=== PATIENT | female | born 1945 | race African-American/Black ===

== ENCOUNTER 2017-01-12 17:56 | Emergency (ER) | payer MEDICARE ==
--- NOTE | 2017-01-12 18:13 | ER Document Report ---
ED Medical Screen (RME) - General Stated Complaint: BLOOD SUGAR PROBLEM Time seen by provider: 18:10 Mode of Arrival: Ambulatory Information source: Patient Notes: 71 yo diabetic female c/o bilateral feet swelling, shortness of breatih, black 4th toe after nail was cut and bleeding 1 month ago.. PCP. [address]. contreras. TRAVEL OUTSIDE OF THE [place] IN LAST 30 DAYS: No - Related Data Allergies/Adverse Reactions: peppermint [Peppermint] Allergy (Verified 02/17/16 02:52) Past Medical History - Past Medical History Cardiac Medical History: Reports: Hx Hypercholesterolemia, Hx Hypertension Pulmonary Medical History: Reports: Hx Asthma, Hx Pneumonia Endocrine Medical History: Reports: Hx Diabetes Mellitus Type 2 Malignancy Medical History: Reports: Hx Lung Cancer - right lung GI Medical History: Reports: Hx Gastroesophageal Reflux Disease Musculoskeltal Medical History: Reports Hx Arthritis, Reports Hx Musculoskeletal Trauma Psychiatric Medical History: Reports: Hx Anxiety Traumatic Medical History: Reports: Hx Fractures - Immunizations Immunizations up to date: Yes Hx Diphtheria, Pertussis, Tetanus Vaccination: Yes
[2017-01-12] MEDS ORDERED: ASPIRIN 81 MG TABLET, CHEWABLE PO ONE (18:14)
--- NOTE | 2017-01-12 18:45 | ER Document Report ---
ED Extremity Problem, Lower - General Mode of Arrival: Ambulatory Information source: Patient TRAVEL OUTSIDE OF THE [place] IN LAST 30 DAYS: No - HPI Patient complains to provider of: Swelling - bilateral lower extremities, Other - black right 4th toe nail Location: Leg, 4th Toe - right Occurred: Other - November 2016 Associated symptoms: Other - see above <KEI GREGG - Last Filed: 01/12/17 18:49> <KAYODE HORTON - Last Filed: 01/12/17 21:25> - General Chief Complaint: Swelling of Lower Extremity Stated Complaint: BLOOD SUGAR PROBLEM Notes: 71 year old female presents to the ED complaining of bilateral lower extremity swelling and a black 4th right toe nail that occurred in November 2016. Patient states that the swelling is worse than normal, but she has not talked to her primary care provider, Dr. Chavarria, about the swelling. Patient states that she thought that the swelling started secondary to the nail discoloration. Patient claims that while her nails were being cut, there was some bleeding present to the right 4th toenail. Patient last saw Dr. Chavarria in November 2016 before she noticed the swelling. (KEI GREGG) - Related Data Allergies/Adverse Reactions: peppermint [Peppermint] Allergy (Verified 02/17/16 02:52) Past Medical History - General Information source: Patient - Social History Smoking Status: Current Some Day Smoker Family History: DM, Hyperlipidemia, Hypertension - Past Medical History Cardiac Medical History: Reports: Hx Hypercholesterolemia, Hx Hypertension Pulmonary Medical History: Reports: Hx Asthma, Hx COPD, Hx Pneumonia Endocrine Medical History: Reports: Hx Diabetes Mellitus Type 2 Renal/ Medical History: Denies: Hx Peritoneal Dialysis Malignancy Medical History: Reports: Hx Lung Cancer - right lung GI Medical History: Reports: Hx Gastroesophageal Reflux Disease Musculoskeltal Medical History: Reports Hx Arthritis, Reports Hx Musculoskeletal Trauma Psychiatric Medical History: Reports: Hx Anxiety Traumatic Medical History: Reports: Hx Fractures Surgical Hx: Negative - Immunizations Immunizations up to date: Yes Hx Diphtheria, Pertussis, Tetanus Vaccination: Yes Hx Pneumococcal Vaccination: 09/01/12 <KEI GREGG - Last Filed: 01/12/17 18:49> Review of Systems - Review of Systems Constitutional: No symptoms reported EENT: No symptoms reported Cardiovascular: No symptoms reported Respiratory: No symptoms reported Gastrointestinal: No symptoms reported Genitourinary: No symptoms reported Female Genitourinary: No symptoms reported Musculoskeletal: See HPI, Leg swelling - bilateral, Other - right 4th toenail discoloration Skin: No symptoms reported Hematologic/Lymphatic: No symptoms reported Neurological/Psychological: No symptoms reported -: Yes All other systems reviewed and negative <GREGGKEI - Last Filed: 01/12/17 18:49> Physical Exam - General General appearance: Alert In distress: None - HEENT Head: Normocephalic, Atraumatic Eyes: Normal Extraocular movements intact: Yes Pupils: PERRL - Respiratory Respiratory status: No respiratory distress Breath sounds: Normal - Cardiovascular Rhythm: Regular Heart sounds: Normal auscultation - Abdominal Inspection: Obese. No: Normal Distension: No distension Bowel sounds: Normal Tenderness: Nontender - Back Back: Normal - Extremities General upper extremity: Normal inspection, Normal ROM General lower extremity: Edema - bilateral pitting edema that is not new., Normal ROM, Other - right 4th toe nail is stained black consistent with the patient's story of some bleeding present at the time of getting her nails cut. - Neurological Neuro grossly intact: Yes - baseline dimentia - Psychological Associated symptoms: Normal affect, Normal mood - Skin Skin Temperature: Warm Skin Moisture: Dry Skin Color: Normal <KEI GREGG - Last Filed: 01/12/17 18:49> Course <GREGGKEI - Last Filed: 01/12/17 18:49> - Laboratory Result Diagrams: 01/12/17 19:15 01/12/17 19:15 - Diagnostic Test Radiology reviewed: Image reviewed, Reports reviewed - Chest x-ray is unremarkable - EKG Interpretation by Me EKG shows normal: Sinus rhythm, [place], Intervals, ST-T Waves. abnormal: QRS Complexes Rate: Normal - 75 Rhythm: NSR Voltage: Consistant with LVH When compared to previous EKG there are: No significant change <KAYODE HORTON - Last Filed: 01/12/17 21:25> - Re-evaluation Re-evalutation: 01/12/17 20:18 The patient's blood sugar was 503. On previous visits that has been in the 400s. An A1c was done as none were seen in the past on review of the records, and her A1c is 11.4 She is obviously very poorly controlled with respect to her diabetes. She will be encouraged to follow-up with her primary care provider on Saturday to review this lab work, her current medications and compliance, and her edema. ( KAYODE HORTON) - Vital Signs Vital signs: Temp Pulse Resp BP Pulse Ox 98.1 F 76 22 H 155/67 H 100 01/12/17 18:07 01/12/17 18:07 01/12/17 19:00 01/12/17 18:07 01/12/17 19:00 (KEI GREGG) (KAYODE HORTON) - Laboratory Laboratory results interpreted by me: 01/12/17 01/12/17 01/12/17 19:15 19:15 19:15 RBC 3.58 L Hgb 11.9 L MCV 101 H Seg Neuts % (Manual) 29 L Lymphocytes % (Manual) 68 H Monocytes % (Manual) 2 L Abs Lymphs (Manual) 6.5 H Sodium 136.4 L Est GFR (Non-Af Amer) 54 L Glucose 503 H* Hemoglobin A1c % 11.4 H Urine Glucose (UA) Ur Leukocyte Esterase 01/12/17 20:45 RBC Hgb MCV Seg Neuts % (Manual) Lymphocytes % (Manual) Monocytes % (Manual) Abs Lymphs (Manual) Sodium Est GFR (Non-Af Amer) Glucose Hemoglobin A1c % Urine Glucose (UA) >=500 H Ur Leukocyte Esterase MODERATE H Discharge <KEI GREGG - Last Filed: 01/12/17 18:49> <KAYODE HORTON - Last Filed: 01/12/17 21:25> - Discharge Clinical Impression: Peripheral edema, Poorly controlled diabetes mellitus Urinary tract infection Qualifiers: Urinary tract infection type: site unspecified Hematuria presence: without hematuria Qualified Code(s): N39.0 - Urinary tract infection, site not specified Condition: Stable Disposition: HOME, SELF-CARE Additional Instructions: Urinary Tract Infection: Your evaluation indicates that you have a urinary tract infection. This is due to germs growing in the bladder. This is a common problem. This infection usually responds quickly to antibiotics. Your antibiotic should be taken exactly as prescribed. Drink plenty of fluids -- three to four quarts a day. Occasionally, a bladder anesthetic will be prescribed to help stop the feeling of urgency until the antibiotic has a chance to clear the infection. This may cause your urine to be dark orange. Certain urine infections require a culture. If the doctor obtained a culture, the results will be back in two days. You should call to see if a change in treatment is needed. A repeat urinalysis after you finish treatment is often recommended. The physician will let you know if further testing is required. Call the doctor if you develop fever, chills, flank pain, inability to urinate, or blood in the urine. Edema, Peripheral: You have swelling in your legs. This is called peripheral edema. It can be caused by "leaky capillaries," inflammation, disease of the leg veins, or excess salt and water in your body. Edema may be a sign of heart, kidney, or liver disease. A medical evaluation can determine if there is a serious underlying cause for your edema. Avoid prolonged standing. If you must sit for a long time, occasionally get up and walk around or elevate your legs. Support stockings can be helpful in limiting swelling. Often diuretic or water pills are used to remove excess salt and water from your body. Call the doctor or return if you develop increased swelling, pain, or redness, shortness of breath, chest pain, or any other significant change. Diabetes: You have an abnormally high blood sugar. Uncontrolled high blood sugar leads to early heart disease, strokes, nerve damage, eye damage, and kidney damage. All diabetics should follow a diet designed to control the blood sugar. Overweight diabetics should exercise regularly and lose weight. If this is not sufficient to control the blood sugar, pills or insulin shots are necessary. Home testing of blood sugars or urine sugar is required. YOUR BLOOD SUGAR HAS BEEN POORLY CONTROLLED FOR A LONG TIME. TAKE THE MEDICATION PRESCRIBED FOR URINE INFECTION. DRINK PLENTY OF WATER. FOLLOW UP WITH DR. CHAVARRIA SATURDAY TO RECHECK YOUR URINE AND TO REVIEW YOUR DIABETES MEDICATION. RETURN TO THE EMERGENCY ROOM IF ANY NEW OR WORSENING SYMPTOMS. Prescriptions: Cephalexin Monohydrate [Keflex 500 mg Capsule] 500 mg PO BID #10 capsule Referrals: ADOLFO CHAVARRIA MD [Primary Care Provider] - 01/14/17 Scribe Attestation: 01/12/17 21:25 I personally performed the services described in the documentation, reviewed and edited the documentation which was dictated to the scribe in my presence, and it accurately records my words and actions. (KAYODE HORTON) Scribe Documentation - Scribe Written by Sheilaibe:: Lisandra Beltrán, 01/12/2017 1845 acting as scribe for :: Isidra <KEI GREGG - Last Filed: 01/12/17 18:49>
--- NOTE | 2017-01-12 19:29 | EKG REPORT ---
SEVERITY:- ABNORMAL ECG - SINUS RHYTHM LVH WITH SECONDARY REPOLARIZATION ABNORMALITY : Confirmed by: Philip Burrell MD 12-Jan-2017 19:27:48
[2017-01-12 19:37] LABS: ALANINE AMINOTRANSFERASE 29 U/L (9-52); ALBUMIN 3.6 g/dL (3.5-5.0); ALKALINE PHOSPHATASE 91 U/L (38-126); ANION GAP 11 (5-19); ASPARTATE AMINO TRANSFERASE 19 U/L (14-36); BILIRUBIN,TOTAL 0.3 mg/dL (0.2-1.3); BLOOD UREA NITROGEN 17 mg/dL (7-20); CALCIUM 9.9 mg/dL (8.4-10.2); CARBON DIOXIDE 24 mmol/L (22-30); CHLORIDE 101 mmol/L (98-107); CREATINE KINASE 67 U/L (30-135); CREATININE RESULT 1.01 mg/dL (0.52-1.25); SODIUM 136.4 mmol/L (137-145); TOTAL PROTEIN 7.4 g/dL (6.3-8.2)
[2017-01-12 19:42] LABS: HEMOGLOBIN 11.9 g/dL (12.0-15.5); HGB HCT DIFFERENCE -0.3; MEAN CORPUSCULAR HEMOGLOBIN 33.1 pg (27.0-33.4); MEAN CORPUSCULAR VOLUME 101 fl (80-97); RED BLOOD COUNT 3.58 10^6/uL (3.72-5.28); RED CELL DISTRIBUTION WIDTH 13.2 % (11.5-14.0); WHITE BLOOD COUNT 9.5 10^3/uL (4.0-10.5)
[2017-01-12 19:47] LABS: GLUCOSE 503 mg/dL (75-110)
[2017-01-12 19:49] LABS: CREATINE KINASE MB 0.69 ng/mL (<4.55)
[2017-01-12 19:50] LABS: TROPONIN I < 0.012 ng/mL
[2017-01-12 20:09] LABS: EOSINOPHILS % (MANUAL) 1 % (0-6); LYMPHOCYTES % (MANUAL) 68 % (13-45); TOTAL CELLS COUNTED 100
[2017-01-12 20:11] LABS: TOXIC GRANULATION 1+
[2017-01-12 20:12] LABS: PLATELET CLUMPS PRESENT
[2017-01-12] MEDS ORDERED: INSULIN REG, HUMAN 100 UNIT/ML 3 ML VIAL (PYX) SUBCUT ONE (20:20)
[2017-01-12 21:15] LABS: APPEARANCE,URINE CLEAR; BILIRUBIN,URINE NEGATIVE (NEGATIVE); GLUCOSE, URINE >=500 mg/dL (NEGATIVE); KETONES,URINE NEGATIVE (NEGATIVE); LEUKOCYTE ESTERASE,URINE MODERATE (NEGATIVE); NITRITE,URINE NEGATIVE (NEGATIVE); PROTEIN,URINE NEGATIVE (NEGATIVE); URINE SPECIFIC GRAVITY 1.028; UROBILINOGEN,URINE NEGATIVE mg/dL (<2.0)
[2017-01-12] MEDS ORDERED: CEPHALEXIN 500 MG CAPSULE PO ONE (21:19)
[2017-01-12 21:55] VITALS: BP 151/73
== END 2017-01-12 21:54 | disposition home or self-care (01) ==
LOC: ER 17:56
DX: R60.0 Localized edema (principal); E11.9 Type 2 diabetes mellitus without complications; M79.89 Other specified soft tissue disorders; F17.210 Nicotine dependence, cigarettes, uncomplicated; E78.00 Pure hypercholesterolemia, unspecified; I10 Essential (primary) hypertension
CPT/HCPCS: 93005; 99284; 36415; 87086; 82553; 82550; 85025; 80053; 81001; 84484; 83036; 83880; 71010; 93010; A9270 ×3; J1815

== ENCOUNTER 2017-05-11 11:25 | Emergency (ER) | payer MEDICARE ==
[2017-05-11] MEDS ORDERED: NORMAL SALINE 1000 ML 1,000 ML IV ONE (11:46)
[2017-05-11 12:39] LABS: ABSOLUTE BASOPHILS # (AUTO) 0.1 10^3/uL (0.0-0.2); ABSOLUTE EOSINOPHILS # (AUTO) 0.1 10^3/uL (0.0-0.6); ABSOLUTE LYMPHOCYTES (AUTO) 4.1 10^3/uL (0.5-4.7); ABSOLUTE MONOCYTES (AUTO) 0.5 10^3/uL (0.1-1.4); ABSOLUTE NEUT (AUTO) 4.7 10^3/uL (1.7-8.2); BASOPHILS % (AUTO) 1.1 % (0-2); EOSINOPHILS % (AUTO) 0.6 % (0-6); HEMATOCRIT 38.3 % (36.0-47.0); HEMOGLOBIN 12.7 g/dL (12.0-15.5); HGB HCT DIFFERENCE -0.2; LYMPHOCYTES % (AUTO) 43.2 % (13-45); MEAN CORPUSCULAR HEMOGLOBIN 33.2 pg (27.0-33.4); MEAN CORPUSCULAR VOLUME 100 fl (80-97); MONOCYTES % (AUTO) 5.6 % (3-13); RED BLOOD COUNT 3.82 10^6/uL (3.72-5.28); RED CELL DISTRIBUTION WIDTH 13.4 % (11.5-14.0); SEGMENTED NEUTROPHILS % (AUTO) 49.5 % (42-78); WHITE BLOOD COUNT 9.4 10^3/uL (4.0-10.5)
[2017-05-11 12:56] LABS: ALANINE AMINOTRANSFERASE 20 U/L (9-52); ALBUMIN 4.1 g/dL (3.5-5.0); ALKALINE PHOSPHATASE 90 U/L (38-126); ANION GAP 10 (5-19); ASPARTATE AMINO TRANSFERASE 21 U/L (14-36); BILIRUBIN,DIRECT 0.4 mg/dL (0.0-0.4); BILIRUBIN,TOTAL 0.7 mg/dL (0.2-1.3); BLOOD UREA NITROGEN 16 mg/dL (7-20); CALCIUM 10.1 mg/dL (8.4-10.2); CARBON DIOXIDE 25 mmol/L (22-30); CHLORIDE 103 mmol/L (98-107); CREATININE RESULT 0.82 mg/dL (0.52-1.25); GLUCOSE 308 mg/dL (75-110); LIPASE 50.7 U/L (23-300); POTASSIUM 4.3 mmol/L (3.6-5.0); SODIUM 138.4 mmol/L (137-145)
[2017-05-11 14:03] LABS: APPEARANCE,URINE SLIGHTLY-CLOUDY; BILIRUBIN,URINE NEGATIVE (NEGATIVE); GLUCOSE, URINE >=500 mg/dL (NEGATIVE); KETONES,URINE 20 mg/dL (NEGATIVE); LEUKOCYTE ESTERASE,URINE LARGE (NEGATIVE); NITRITE,URINE NEGATIVE (NEGATIVE); PROTEIN,URINE NEGATIVE (NEGATIVE); URINE SPECIFIC GRAVITY 1.028; UROBILINOGEN,URINE NEGATIVE mg/dL (<2.0)
[2017-05-11] MEDS ORDERED: CEFTRIAXONE 1 GM/D5W RTU 50 ML IV ONE (14:10)
--- NOTE | 2017-05-11 14:17 | ER Document Report ---
ED General - General Chief Complaint: High Blood Sugar Stated Complaint: BLOOD SUGAR PROBLEM Time Seen by Provider: 05/11/17 11:46 TRAVEL OUTSIDE OF THE [place] IN LAST 30 DAYS: No - HPI Patient complains to provider of: Hyperglycemia Notes: Patient coming in for evaluation of hyperglycemia. Patient is type II diabetic on metformin and glipizide states she has not taken her medication over a month. Patient states her blood sugars 105 100 therefore came to the ER for further evaluation. Patient denies any fever chills nausea vomiting abdominal pain chest pain. Patient states she does have mild dysuria and was recently diagnosed with UTI does not know what antibiotic she was on however this was over a month ago. - Related Data Allergies/Adverse Reactions: peppermint [Peppermint] Allergy (Verified 02/17/16 02:52) Past Medical History - Social History Smoking Status: Current Every Day Smoker Frequency of alcohol use: None Drug Abuse: None Family History: DM, Hyperlipidemia, Hypertension - Past Medical History Cardiac Medical History: Reports: Hx Hypercholesterolemia, Hx Hypertension Pulmonary Medical History: Reports: Hx Asthma, Hx COPD, Hx Pneumonia Endocrine Medical History: Reports: Hx Diabetes Mellitus Type 2 Renal/ Medical History: Denies: Hx Peritoneal Dialysis Malignancy Medical History: Reports: Hx Lung Cancer - right lung GI Medical History: Reports: Hx Gastroesophageal Reflux Disease Musculoskeltal Medical History: Reports Hx Arthritis, Reports Hx Musculoskeletal Trauma Psychiatric Medical History: Reports: Hx Anxiety Traumatic Medical History: Reports: Hx Fractures - Immunizations Immunizations up to date: Yes Hx Diphtheria, Pertussis, Tetanus Vaccination: Yes Hx Pneumococcal Vaccination: 09/01/12 Review of Systems - Review of Systems Constitutional: Other - Hyperglycemia EENT: No symptoms reported Cardiovascular: No symptoms reported Respiratory: No symptoms reported Gastrointestinal: No symptoms reported Genitourinary: No symptoms reported Female Genitourinary: No symptoms reported Musculoskeletal: No symptoms reported Skin: No symptoms reported Hematologic/Lymphatic: No symptoms reported Neurological/Psychological: No symptoms reported Physical Exam - Vital signs Vitals: Temp 98.4 F 05/11/17 11:46 Interpretation: Normal - General General appearance: Appears well, Alert - HEENT Head: Normocephalic, Atraumatic Eyes: Normal Pupils: PERRL - Respiratory Respiratory status: No respiratory distress Chest status: Nontender Breath sounds: Normal Chest palpation: Normal - Cardiovascular Rhythm: Regular Heart sounds: Normal auscultation Murmur: No - Abdominal Inspection: Normal Distension: No distension Bowel sounds: Normal Tenderness: Nontender Organomegaly: No organomegaly - Back Back: Normal, Nontender - Extremities General upper extremity: Normal inspection, Nontender, Normal color, Normal ROM , Normal temperature General lower extremity: Normal inspection, Nontender, Normal color, Normal ROM , Normal temperature, Normal weight bearing. No: Lana's sign - Neurological Neuro grossly intact: Yes Cognition: Normal Orientation: AAOx4 Herrera Coma Scale Eye Opening: Spontaneous [place] Coma Scale Verbal: Oriented [place] Coma Scale Motor: Obeys Commands [place] Coma Scale Total: 15 Speech: Normal Motor strength normal: LUE, RUE, LLE, RLE Sensory: Normal - Psychological Associated symptoms: Normal affect, Normal mood - Skin Skin Temperature: Warm Skin Moisture: Dry Skin Color: Normal Course - Re-evaluation Re-evalutation: 05/11/17 15:03 Patient's laboratory studies does show signs of urinary tract infection this will be sent for culture patient will be given a dose of Rocephin and sent home on Keflex. Patient was given a refill of her diabetic medication and strongly encouraged to follow-up with her PCP Dr. Chavarria for further evaluation of her medications. Patient had no signs of DKA or HH S - Vital Signs Vital signs: Temp Pulse Resp BP Pulse Ox 98.4 F 89 23 H 164/77 H 95 05/11/17 11:46 05/11/17 11:50 05/11/17 13:02 05/11/17 13:02 05/11/17 13:02 - Laboratory Result Diagrams: 05/11/17 12:25 05/11/17 12:25 Laboratory results interpreted by me: 05/11/17 05/11/17 05/11/17 11:56 12:25 12:25 MCV 100 H Glucose 308 H POC Glucose 313 H Urine Glucose (UA) Urine Ketones Urine Blood Ur Leukocyte Esterase 05/11/17 13:20 MCV Glucose POC Glucose Urine Glucose (UA) >=500 H Urine Ketones 20 H Urine Blood SMALL H Ur Leukocyte Esterase LARGE H Discharge - Discharge Clinical Impression: Hyperglycemia Diabetes type 2, uncontrolled Qualifiers: Diabetes mellitus complication status: with unspecified complications 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 We will refill your diabetic medications today. It is very important that she follow-up with your provider for possible adjustment of these medications and that at this time your diabetes is not very well controlled. Your urinalysis does show signs of infection. We will give you a prescription for antibiotics called Keflex. Please take all the antibiotics as prescribed. Return will be sent for culture to let us know which antibiotic he should be on. If we need to change her antibiotics we will call you in the next 48-72 hours. Prescriptions: Cephalexin Monohydrate [Keflex 500 mg Capsule] 500 mg PO QID 10 Days Glipizide [Glucotrol 10 mg Tablet] 10 mg PO BID #60 tablet Metformin HCl [Glucophage] 1,000 mg PO BIDACBS #60 tablet Referrals: ADOLFO CHAVARRIA MD [ACTIVE STAFF] - Follow up as needed
[2017-05-11 15:07] VITALS: BP 184/90
== END 2017-05-11 15:23 | disposition home or self-care (01) ==
LOC: ER 11:25
DX: E11.65 Type 2 diabetes mellitus with hyperglycemia (principal); T38.3X6A Underdosing of insulin and oral hypoglycemic [antidiabetic] drugs, initial encounter; Z91.14 Patient's other noncompliance with medication regimen; N39.0 Urinary tract infection, site not specified; R30.0 Dysuria; I10 Essential (primary) hypertension; J44.9 Chronic obstructive pulmonary disease, unspecified; F17.200 Nicotine dependence, unspecified, uncomplicated; Z91.018 Allergy to other foods; Z85.118 Personal history of other malignant neoplasm of bronchus and lung
CPT/HCPCS: 99285; 96361; 96365; 36415; 87086; 82962; 83690; 85025; 80053; 81001; J7030; J0696

== ENCOUNTER 2017-06-03 01:31 | Emergency (ER) | payer MEDICARE ==
--- NOTE | 2017-06-03 03:24 | ER Document Report ---
ED Fall - General Chief Complaint: Fall Stated Complaint: WELL CHECK Time Seen by Provider: 06/03/17 03:09 Notes: Patient is a 72-year-old female who comes emergency department for chief complaint of fall. She lives at home, she fell at home, she states she tripped and landed on her buttocks. She reports some pain in her buttocks and also in her right hip. Neighbors responded to patient's phone call and are with her at bedside. Patient came by EMS, told them she had no complaints other than difficulty getting up after fall. Patient is not on a blood thinner. Past medical history of diabetes and hypertension. She denies dizziness, vomiting, chest pain, focal numbness or weakness, fever. TRAVEL OUTSIDE OF THE [place] IN LAST 30 DAYS: No - Related data Allergies/Adverse Reactions: peppermint [Peppermint] Allergy (Verified 02/17/16 02:52) Past Medical History - General Information source: Patient - Social History Smoking Status: Never Smoker Frequency of alcohol use: None Drug Abuse: None Lives with: Family Family History: DM, Hyperlipidemia, Hypertension Patient has suicidal ideation: No Patient has homicidal ideation: No - Past Medical History Cardiac Medical History: Reports: Hx Hypercholesterolemia, Hx Hypertension Pulmonary Medical History: Reports: Hx Asthma, Hx COPD, Hx Pneumonia Endocrine Medical History: Reports: Hx Diabetes Mellitus Type 2 Renal/ Medical History: Denies: Hx Peritoneal Dialysis Malignancy Medical History: Reports: Hx Lung Cancer - right lung GI Medical History: Reports: Hx Gastroesophageal Reflux Disease Musculoskeltal Medical History: Reports Hx Arthritis, Reports Hx Musculoskeletal Trauma Psychiatric Medical History: Reports: Hx Anxiety Traumatic Medical History: Reports: Hx Fractures - Immunizations Immunizations up to date: Yes Hx Diphtheria, Pertussis, Tetanus Vaccination: Yes Hx Pneumococcal Vaccination: 09/01/12 Review of Systems - Review of Systems Constitutional: No symptoms reported EENT: No symptoms reported Cardiovascular: No symptoms reported Respiratory: No symptoms reported Gastrointestinal: No symptoms reported Genitourinary: No symptoms reported Female Genitourinary: No symptoms reported Musculoskeletal: See HPI Skin: No symptoms reported Hematologic/Lymphatic: No symptoms reported Neurological/Psychological: No symptoms reported Physical Exam - Vital signs Vitals: Temp Pulse Resp BP Pulse Ox 98.8 F 85 18 154/69 H 95 06/03/17 01:41 06/03/17 01:41 06/03/17 01:41 06/03/17 01:41 06/03/17 01:41 Interpretation: Normal - General General appearance: Appears well, Alert In distress: None - Patient is talkative, smiling, well-appearing, does not appear to be in any pain - HEENT Head: Normocephalic, Atraumatic Eyes: Normal Conjunctiva: Normal Extraocular movements intact: Yes Eyelashes: Normal Pupils: PERRL Ears: Normal External canal: Normal Tympanic membrane: Normal Sinus: Normal Nasal: Normal Mouth/Lips: Normal Mucous membranes: Normal Pharynx: Normal Neck: Normal - Respiratory Respiratory status: No respiratory distress Chest status: Nontender Breath sounds: Normal. No: Decreased air movement, Wheezing Chest palpation: Normal - Cardiovascular Rhythm: Regular. No: Tachycardia Heart sounds: Normal auscultation, S1 appreciated, S2 appreciated Murmur: No - Abdominal Inspection: Normal Distension: No distension Bowel sounds: Normal Tenderness: Nontender. No: Tender, Guarding Organomegaly: No organomegaly - Back Back: Normal, Nontender. No: Tender - Appreciate any tenderness in the midline , there is mild tenderness over the bilateral paraspinal muscles, extremities without difficulty, normal distal neurovascular exam, normal strength, no saddle anesthesia - Extremities General upper extremity: Normal inspection, Nontender, Normal color, Normal ROM , Normal temperature General lower extremity: Other - States that she has pain when her right proximal femur and hip are palpated, however she does not appear to be in pain, has good motion, able to ambulate using her cane - Neurological Neuro grossly intact: Yes Cognition: Normal Orientation: AAOx4 [place] Coma Scale Eye Opening: Spontaneous [place] Coma Scale Verbal: Oriented [place] Coma Scale Motor: Obeys Commands [place] Coma Scale Total: 15 Speech: Normal Motor strength normal: LUE, RUE, LLE, RLE Sensory: Normal - Psychological Associated symptoms: Normal affect, Normal mood - Skin Skin Temperature: Warm Skin Moisture: Dry Skin Color: Normal Course - Re-evaluation Re-evalutation: Alert, well-appearing, does not have any signs of concerning injuries, has negative x-rays, has no concerning deficits. Discussed with patient, I discussed results, I asked if she feels safe at home living alone where she wants home health for additional assistance, she states that she eats well, gets around well, and does very well, at this time she does not want any additional assistance, she states she just wanted to be checked out. - Vital Signs Vital signs: Temp Pulse Resp BP Pulse Ox 98.8 F 85 18 154/69 H 95 06/03/17 01:41 06/03/17 01:41 06/03/17 01:41 06/03/17 01:41 06/03/17 01:41 - Diagnostic Test Radiology reviewed: Image reviewed, Reports reviewed Discharge - Discharge Clinical Impression: Fall Qualifiers: Encounter type: initial encounter Qualified Code(s): W19.XXXA - Unspecified fall, initial encounter Hip pain Qualifiers: Laterality: right Qualified Code(s): M25.551 - Pain in right hip Condition: Stable Disposition: HOME, SELF-CARE Additional Instructions: The images do not show any new or concerning findings. Take tylenol for pain. Follow up closely with your Provider. Return to the ED for any concerning symptoms. Forms: Elevated Blood Pressure
--- NOTE | 2017-06-03 04:39 | RADIOLOGY REPORT (SQ) ---
EXAM DESCRIPTION: L SPINE WHOLE COMPLETED DATE/TIME: 06/03/2017 4:19 am REASON FOR STUDY: fall COMPARISON: CT, 10/21/2009 NUMBER OF VIEWS: Five views including obliques. TECHNIQUE: AP, lateral, oblique, and sacral radiographic images acquired of the lumbar spine. LIMITATIONS: None. FINDINGS: MINERALIZATION: Normal. SEGMENTATION: Normal. No transitional anatomy. ALIGNMENT: 0.2 cm degenerative L4 anterolisthesis, stable compared with prior CT from October 2009. VERTEBRAE: Maintained height. No fracture or worrisome bone lesion. DISCS: Mild disc desiccation. POSTERIOR ELEMENTS: Moderate spondylosis between the L4 and S1 levels. HARDWARE: None in the spine. PARASPINAL SOFT TISSUES: Normal. PELVIS: Intact as visualized. No fractures or worrisome bone lesions. SI joints intact. OTHER: Mild osteoarthritis of bilateral hips, right more than left. IMPRESSION: Mild disc desiccation - spondylosis. TECHNICAL DOCUMENTATION: JOB ID: [id number] [employer]- All Rights Reserved
--- NOTE | 2017-06-03 04:40 | RADIOLOGY REPORT (SQ) ---
EXAM DESCRIPTION: HIP RIGHT AP/LATERAL COMPLETED DATE/TIME: 06/03/2017 4:19 am REASON FOR STUDY: right hip pain COMPARISON: 08/31/2015 NUMBER OF VIEWS: Two views. TECHNIQUE: AP pelvis and additional frog-leg view of the right hip. LIMITATIONS: None. FINDINGS: MINERALIZATION: Normal. RIGHT HIP: [id number] primary osteoarthritis. LEFT HIP: Minimal osteoarthritis. PUBIS AND ISCHIUM: No fracture. PELVIS: No fracture. SACRUM: No fracture or dislocation. No worrisome bone lesions. LOWER LUMBAR SPINE: No fracture or dislocation. No worrisome bone lesions. No significant disc disea se. SOFT TISSUES: No findings. OTHER: No other significant finding. IMPRESSION: No acute findings. TECHNICAL DOCUMENTATION: JOB ID: [id number] [employer]- All Rights Reserved
[2017-06-03] MEDS ORDERED: ACETAMINOPHEN 325 MG TABLET PO ONE (05:04)
[2017-06-03 09:57] VITALS: BP 137/68
== END 2017-06-03 09:55 | disposition home or self-care (01) ==
LOC: ER 01:31
DX: M25.551 Pain in right hip (principal); W01.0XXA Fall on same level from slipping, tripping and stumbling without subsequent striking against object, initial encounter; E78.00 Pure hypercholesterolemia, unspecified; I10 Essential (primary) hypertension; Z85.118 Personal history of other malignant neoplasm of bronchus and lung; Z60.2 Problems related to living alone
CPT/HCPCS: 99283; 73502; 72110; A9270

== ENCOUNTER 2017-06-07 19:16 | Inpatient (IN) | payer MEDICARE ==
--- NOTE | 2017-06-07 19:36 | ER Document Report ---
ED General - General Stated Complaint: FALL/RIGHT HIP PAIN Time Seen by Provider: 06/07/17 19:25 Notes: Patient is a 72-year-old female with past medical history of diabetes, hypertension and dementia who presents after having a mechanical fall, landing on her right hip. Patient states that this occurred when she tried to walk out of the bathroom after she tripped over her own feet. She adamantly denies any presyncopal or syncopal symptoms causing the fall. She has had history of similar falls in the past. She notes that since that time she has had a dull, constant, aching pain to the right hip. Any attempt at movement or bearing weight worsens the pain. She has not tried anything to improve the pain. No prior injury to this right hip. She does arrive by EMS services after being found by her daughter lying on the ground. Apparently she was on the ground for approximately 16 hours prior to being found. TRAVEL OUTSIDE OF THE [place] IN LAST 30 DAYS: No - Related Data Allergies/Adverse Reactions: peppermint [Peppermint] Allergy (Verified 02/17/16 02:52) Past Medical History - General Information source: Patient - Social History Smoking Status: Never Smoker Frequency of alcohol use: None Drug Abuse: None Lives with: Alone Family History: DM, Hyperlipidemia, Hypertension - Past Medical History Cardiac Medical History: Reports: Hx Hypercholesterolemia, Hx Hypertension Pulmonary Medical History: Reports: Hx Asthma, Hx COPD, Hx Pneumonia Endocrine Medical History: Reports: Hx Diabetes Mellitus Type 2 Renal/ Medical History: Denies: Hx Peritoneal Dialysis Malignancy Medical History: Reports: Hx Lung Cancer - right lung GI Medical History: Reports: Hx Gastroesophageal Reflux Disease Musculoskeltal Medical History: Reports Hx Arthritis, Reports Hx Musculoskeletal Trauma Psychiatric Medical History: Reports: Hx Anxiety Traumatic Medical History: Reports: Hx Fractures - Immunizations Immunizations up to date: Yes Hx Diphtheria, Pertussis, Tetanus Vaccination: Yes Hx Pneumococcal Vaccination: 09/01/12 Review of Systems - Review of Systems Notes: Constitutional: Negative for fever. HENT: Negative for sore throat. Eyes: Negative for visual changes. Cardiovascular: Negative for chest pain. Respiratory: Negative for shortness of breath. Gastrointestinal: Negative for abdominal pain, vomiting or diarrhea. Genitourinary: Negative for dysuria. Musculoskeletal: Positive for right hip pain Skin: Negative for rash. Neurological: Negative for headaches, weakness or numbness. 10 point ROS negative except as marked above and in HPI. Physical Exam - Vital signs Vitals: Temp Pulse Resp BP Pulse Ox 98.7 F 109 H 16 155/77 H 93 06/07/17 19:23 06/07/17 19:23 06/07/17 19:23 06/07/17 19:23 06/07/17 19:23 Interpretation: Tachycardic Notes: PHYSICAL EXAMINATION: GENERAL: Well-appearing, no acute distress. HEAD: Atraumatic, normocephalic. EYES: Pupils equal round and reactive to light, extraocular movements intact, sclera anicteric, conjunctiva are normal. ENT: nares patent, no oral pharyngeal trauma. No hemotympanum, no Morgan's sign , no raccoon eyes. NECK: No midline cervical spine tenderness. Patient able to move their head to 45 bilaterally without any discomfort. LUNGS: Breath sounds clear to auscultation bilaterally and equal. No wheezes rales or rhonchi. HEART: Regular rate and rhythm without murmurs. CHEST WALL: No ecchymosis over the chest wall. ABDOMEN: Soft, nontender, normoactive bowel sounds. No guarding, no rebound. No abdominal bruising EXTREMITIES: Limited range of motion on the right hip secondary to pain. There is pain with axial loading and internal rotation of the right hip. Extremity exam is otherwise unremarkable BACK: No midline spinal tenderness, step-offs, or deformities. NEUROLOGICAL: Face symmetric. Tongue protrudes midline. Extraocular motions intact. Pupils are 2 mm and equally reactive. Normal speech. 5 out of 5 strength in both the distal and proximal upper and lower extremities bilaterally. Sensation is grossly intact throughout. PSYCH: Normal mood, normal affect. SKIN: Warm, Dry, normal turgor, no rashes or lesions noted. Course - Re-evaluation Re-evalutation: 06/07/17 19:33 Patient presents after mechanical fall in which she was lying on the ground for approximately 16 hours, complaining of mild right hip pain but no additional complaints. Overall well in appearance, vitals within normal limits and in no acute distress. She has no evidence of head or neck trauma to warrant CT imaging of the head or cervical spine. No trauma over the chest or abdominal wall and she denies any pain to these areas. There is no significant bruising or deformity to the right hip. She has mild pain on axial loading and internal rotation of the right hip her clinical exam is otherwise unremarkable. Given the duration of the time of the patient was on the ground, will plan on obtaining basic laboratories to evaluate for rhabdomyolysis with associated acute kidney injury, and will also obtain x-rays of the right hip and pelvis. 06/07/17 23:25 CT continues to show likely non-displaced femur fracture. Nurse did try to ambulate the patient but states pain was so severe, patient could not ambulate even to bedside toilet. Patient will be admitted with ortho consult. 06/07/17 23:32 I have discussed this case with Dr. Coates who is agreed to admit the patient to telemetry. The case was also discussed with Dr. Nicole who is in agreement with admission. - Vital Signs Vital signs: Temp Pulse Resp BP Pulse Ox 98.8 F 97 17 140/59 H 96 06/08/17 00:45 06/08/17 00:45 06/08/17 00:45 06/08/17 00:45 06/08/17 00:45 - Laboratory Result Diagrams: 06/07/17 20:50 06/07/17 20:50 Laboratory results interpreted by me: 06/07/17 06/07/17 20:50 20:50 WBC 13.3 H RBC 3.71 L MCV 100 H Glucose 238 H Direct Bilirubin 0.5 H AST 68 H Creatine Kinase 399 H - Diagnostic Test Radiology reviewed: Image reviewed, Reports reviewed Discharge - Discharge Clinical Impression: Fall Qualifiers: Encounter type: initial encounter Qualified Code(s): W19.XXXA - Unspecified fall, initial encounter Fracture of femoral neck, right Qualifiers: Encounter type: initial encounter Fracture type: closed Qualified Code(s): S72.001A - Fracture of unspecified part of neck of right femur, initial encounter for closed fracture Condition: Fair Disposition: ADMITTED INPATIENT Admitting Provider: Jaxon Unit Admitted: Telemetry
--- NOTE | 2017-06-07 20:26 | RADIOLOGY REPORT (SQ) ---
EXAM DESCRIPTION: PELVIS AP; FEMUR RIGHT COMPLETED DATE/TIME: 06/07/2017 8:09 pm REASON FOR STUDY: right hip PAIN; fall COMPARISON: None. NUMBER OF VIEWS: 5 TECHNIQUE: AP Pelvis an frontal and lateral views of the right femur LIMITATIONS: None. FINDINGS: MINERALIZATION: Normal. HIPS: Mild cortical irregularity in the upper right femoral neck concerning for possible nondisplaced fracture. No dislocation. No worrisome bone lesions. PELVIS AND SACRUM: No acute fracture or dislocation. No worrisome bone lesions. PUBIS AND ISCHIUM: No acute fracture. LOWER LUMBAR SPINE: No significant findings as visualized. SOFT TISSUES: No significant findings. OTHER: No other significant finding. IMPRESSION: Mild cortical irregularity in the upper right femoral neck concerning for possible nondi splaced fracture. Consider MRI or CT to further assess. TECHNICAL DOCUMENTATION: JOB ID: [id number] [employer]- All Rights Reserved
--- NOTE | 2017-06-07 20:26 | RADIOLOGY REPORT (SQ) ---
EXAM DESCRIPTION: PELVIS AP; FEMUR RIGHT COMPLETED DATE/TIME: 06/07/2017 8:09 pm REASON FOR STUDY: right hip PAIN; fall COMPARISON: None. NUMBER OF VIEWS: 5 TECHNIQUE: AP Pelvis an frontal and lateral views of the right femur LIMITATIONS: None. FINDINGS: MINERALIZATION: Normal. HIPS: Mild cortical irregularity in the upper right femoral neck concerning for possible nondisplaced fracture. No dislocation. No worrisome bone lesions. PELVIS AND SACRUM: No acute fracture or dislocation. No worrisome bone lesions. PUBIS AND ISCHIUM: No acute fracture. LOWER LUMBAR SPINE: No significant findings as visualized. SOFT TISSUES: No significant findings. OTHER: No other significant finding. IMPRESSION: Mild cortical irregularity in the upper right femoral neck concerning for possible nondi splaced fracture. Consider MRI or CT to further assess. TECHNICAL DOCUMENTATION: JOB ID: [id number] [employer]- All Rights Reserved
[2017-06-07 21:04] LABS: ABSOLUTE BASOPHILS # (AUTO) 0.1 10^3/uL (0.0-0.2); ABSOLUTE EOSINOPHILS # (AUTO) 0.3 10^3/uL (0.0-0.6); ABSOLUTE LYMPHOCYTES (AUTO) 4.3 10^3/uL (0.5-4.7); ABSOLUTE MONOCYTES (AUTO) 0.9 10^3/uL (0.1-1.4); ABSOLUTE NEUT (AUTO) 7.8 10^3/uL (1.7-8.2); BASOPHILS % (AUTO) 0.7 % (0-2); HEMATOCRIT 36.9 % (36.0-47.0); HGB HCT DIFFERENCE -0.9; LYMPHOCYTES % (AUTO) 32.5 % (13-45); MEAN CORPUSCULAR HEMOGLOBIN 32.4 pg (27.0-33.4); MEAN CORPUSCULAR HGB CONC 32.5 g/dL (32.0-36.0); MEAN CORPUSCULAR VOLUME 100 fl (80-97); MONOCYTES % (AUTO) 6.6 % (3-13); RED BLOOD COUNT 3.71 10^6/uL (3.72-5.28); RED CELL DISTRIBUTION WIDTH 12.8 % (11.5-14.0); SEGMENTED NEUTROPHILS % (AUTO) 58.2 % (42-78); WHITE BLOOD COUNT 13.3 10^3/uL (4.0-10.5)
[2017-06-07 21:41] LABS: ALANINE AMINOTRANSFERASE 23 U/L (9-52); ALKALINE PHOSPHATASE 98 U/L (38-126); ANION GAP 11 (5-19); ASPARTATE AMINO TRANSFERASE 68 U/L (14-36); BILIRUBIN,DIRECT 0.5 mg/dL (0.0-0.4); BILIRUBIN,TOTAL 0.9 mg/dL (0.2-1.3); BLOOD UREA NITROGEN 12 mg/dL (7-20); CALCIUM 10.2 mg/dL (8.4-10.2); CARBON DIOXIDE 26 mmol/L (22-30); CHLORIDE 103 mmol/L (98-107); CREATINE KINASE 399 U/L (30-135); CREATININE RESULT 0.89 mg/dL (0.52-1.25); GLUCOSE 238 mg/dL (75-110); POTASSIUM 4.2 mmol/L (3.6-5.0); SODIUM 140.2 mmol/L (137-145)
--- NOTE | 2017-06-07 22:51 | RADIOLOGY REPORT (SQ) ---
EXAM DESCRIPTION: CT RT LOWER EXTREMITY WITHOUT COMPLETED DATE/TIME: 06/07/2017 10:31 pm REASON FOR STUDY: femur fx COMPARISON: Earlier radiographs TECHNIQUE: CT scan of the right hip performed without intravenous or oral contrast. Images reviewed with soft tissue and bone windows. Reconstructed coronal and sagittal MPR images reviewed. All jeanette ges stored on PACS. All CT scanners at this facility use dose modulation, iterative reconstruction, and/or weight based d osing when appropriate to reduce radiation dose to as low as reasonably achievable (ALARA). [facility]: Dose Right [facility]: CareDose [facility]: Dose Right [facility]: Teradose 4D [facility]: Smart Wire RADIATION DOSE: Up-to-date CT equipment and radiation dose reduction techniques were employed. CTDIv ol: 4.1 mGy. DLP: 201 mGy-cm. mGy. LIMITATIONS: None. FINDINGS: There is mild cortical irregularity in the subcapital portion of the upper right femoral n tiffany, seen best on the coronal reconstructions, this appearance remains suspicious for nondisplaced fr acture. OTHER: No other significant finding. IMPRESSION: There is mild cortical irregularity in the subcapital portion of the upper right femoral neck, seen best on the coronal reconstructions, this appearance remains suspicious for nondisplaced fracture. TECHNICAL DOCUMENTATION: JOB ID: [id number] Quality ID # [id number]: Final reports with documentation of one or more dose reduction techniques (e.g., Au tomated exposure control, adjustment of the mA and/or kV according to patient size, use of iterative reconstruction technique) 2010 [employer]- All Rights Reserved
[2017-06-07] MEDS ORDERED: NORMAL SALINE 1000 ML 1,000 ML IV PRN (23:34)
[2017-06-07] MEDS ORDERED: OXYCODONE-ACETAMINOPHEN 5-325 MG TABLET PO PRN (23:34)
[2017-06-07] MEDS ORDERED: DEXTROSE 50%-WATER 25 GM/50 ML DISP.SYRIN IV PRN ×2 (23:38)
[2017-06-07] MEDS ORDERED: GLUCAGON,HUMAN RECOMB 1 MG INJ IM PRN (23:38)
[2017-06-07] MEDS ORDERED: DEXTROSE 40% GEL 15 GM TUBE PO PRN ×2 (23:38)
[2017-06-07] MEDS ORDERED: CEFTRIAXONE 1 GM/D5W RTU 1 GM/50 ML RTUPB IV ONE (23:58)
[2017-06-08] MEDS: LANSOPRAZOLE 15 MG TAB.RAP.DR PO SCH ×2 (05:57→17:02)
[2017-06-08 06:02] LABS: ABSOLUTE BASOPHILS # (AUTO) 0.1 10^3/uL (0.0-0.2); ABSOLUTE EOSINOPHILS # (AUTO) 0.3 10^3/uL (0.0-0.6); ABSOLUTE LYMPHOCYTES (AUTO) 3.8 10^3/uL (0.5-4.7); ABSOLUTE MONOCYTES (AUTO) 0.9 10^3/uL (0.1-1.4); ABSOLUTE NEUT (AUTO) 6.1 10^3/uL (1.7-8.2); BASOPHILS % (AUTO) 1.2 % (0-2); EOSINOPHILS % (AUTO) 2.3 % (0-6); HEMATOCRIT 34.5 % (36.0-47.0); HEMOGLOBIN 11.5 g/dL (12.0-15.5); MEAN CORPUSCULAR HEMOGLOBIN 33.1 pg (27.0-33.4); MEAN CORPUSCULAR HGB CONC 33.3 g/dL (32.0-36.0); MEAN CORPUSCULAR VOLUME 99 fl (80-97); MONOCYTES % (AUTO) 8.1 % (3-13); RED BLOOD COUNT 3.47 10^6/uL (3.72-5.28); RED CELL DISTRIBUTION WIDTH 12.9 % (11.5-14.0); SEGMENTED NEUTROPHILS % (AUTO) 54.4 % (42-78); WHITE BLOOD COUNT 11.2 10^3/uL (4.0-10.5)
[2017-06-08 06:14] LABS: ANION GAP 10 (5-19); BLOOD UREA NITROGEN 11 mg/dL (7-20); CALCIUM 9.9 mg/dL (8.4-10.2); CARBON DIOXIDE 24 mmol/L (22-30); CHLORIDE 105 mmol/L (98-107); CREATININE RESULT 0.83 mg/dL (0.52-1.25); GLUCOSE 234 mg/dL (75-110); POTASSIUM 4.2 mmol/L (3.6-5.0); SODIUM 139.4 mmol/L (137-145)
--- NOTE | 2017-06-08 09:12 | EKG REPORT ---
SEVERITY:- ABNORMAL ECG - SINUS RHYTHM PROBABLE LEFT ATRIAL ABNORMALITY PROBABLE LEFT VENTRICULAR HYPERTROPHY NONSPECIFIC ST-T CHANGES- INFERIOR LEADS : Confirmed by: Philip Burrell MD 08-Jun-2017 09:11:31
[2017-06-08] MEDS ORDERED: IPRATROPIUM/ALBUTEROL 0.5-2.5 MG/3 ML AMPUL NEB PRN (09:20)
--- NOTE | 2017-06-08 09:54 | RADIOLOGY REPORT (SQ) ---
EXAM DESCRIPTION: CHEST SINGLE VIEW COMPLETED DATE/TIME: 06/08/2017 9:40 am REASON FOR STUDY: copd COMPARISON: January 2017 EXAM PARAMETERS: NUMBER OF VIEWS: One view. TECHNIQUE: Single frontal radiographic view of the chest acquired. RADIATION DOSE: NA LIMITATIONS: None. FINDINGS: LUNGS AND PLEURA: No opacities, masses or pneumothorax. No pleural effusion. Linear scarr ing or subsegmental atelectasis is identified in the right lung base. MEDIASTINUM AND HILAR STRUCTURES: No masses. Contour normal. HEART AND VASCULAR STRUCTURES: The configuration of the heart and mediastinal structures is unchanged . BONES: No acute findings. HARDWARE: None in the chest. OTHER: No other significant finding. IMPRESSION: No significant interval change. No acute findings. Other findings as noted above TECHNICAL DOCUMENTATION: JOB ID: [id number]
--- NOTE | 2017-06-08 10:32 | PDOC H&P ---
History of Present Illness Admission Date/PCP: 06/07/17 23:34 Patient complains of: Fall and a right hip fracture History of Present Illness: TRENTON BEARD is a 72 year old female This is a 72-year-old female with a history of the COPD and hypertension and hyperlipidemia and history of the lung cancer status post surgery and still continues to smoke came to the emergency department after a fall with a tripped over and patient was complaining of right hip pain and patient have a nondisplaced fracture in the right femoral area and decided to admit in the hospital was consulted Patients denied any chest pain denied any shortness of the breath Patients denied any previous heart problem patients denied any stroke Patients denied any syncopal episode Past Medical History Cardiac Medical History: Reports: Hyperlipidema, Hypertension Pulmonary Medical History: Reports: Asthma, Chronic Obstructive Pulmonary Disease (COPD), Pneumonia Endocrine Medical History: Reports: Diabetes Mellitus Type 2 Malignancy Medical History: Reports: Lung Cancer - right lung GI Medical History: Reports: Gastroesophageal Reflux Disease Musculoskeltal Medical History: Reports: Arthritis Psychiatric Medical History: Denies: Depression Past Surgical History Past Surgical History: Reports: Other - Status post lobectomy for the lung cancer Social History Information Source: Patient Lives with: Alone Smoking Status: Current Every Day Smoker Frequency of Alcohol Use: None Hx Recreational Drug Use: No Drugs: None Hx Prescription Drug Abuse: No Family History Family History: Reviewed & Not Pertinent, DM, Hyperlipidemia, Hypertension Parental Family History Reviewed: Yes Children Family History Reviewed: Yes Sibling(s) Family History Reviewed.: Yes Medication/Allergy Allergies/Adverse Reactions: peppermint [Peppermint] Allergy (Verified 02/17/16 02:52) Review of Systems Constitutional: ABSENT: chills, fever(s), headache(s), weight gain, weight loss Eyes: ABSENT: visual disturbances Ears: ABSENT: hearing changes Cardiovascular: ABSENT: chest pain, dyspnea on exertion, edema, orthropnea, palpitations Respiratory: ABSENT: cough, hemoptysis Gastrointestinal: ABSENT: abdominal pain, constipation, diarrhea, hematemesis, hematochezia, nausea, vomiting Genitourinary: ABSENT: dysuria, hematuria Musculoskeletal: ABSENT: joint swelling Integumentary: ABSENT: rash, wounds Neurological: ABSENT: abnormal gait, abnormal speech, confusion, dizziness, focal weakness, syncope Psychiatric: ABSENT: anxiety, depression, homidical ideation, suicidal ideation Endocrine: ABSENT: cold intolerance, heat intolerance, menstrual abnormalities, polydipsia, polyuria Hematologic/Lymphatic: ABSENT: easy bleeding, easy bruising, lymphadenopathy Physical Exam Vital Signs: Temp Pulse Resp BP Pulse Ox 98.5 F 104 H 18 148/68 H 92 06/08/17 08:01 06/08/17 08:01 06/08/17 08:01 06/08/17 08:01 06/08/17 08:01 Intake & Output 06/07/17 06/08/17 06/09/17 06:59 06:59 06:59 Intake Total 400 Balance 400 Weight 80.5 kg General appearance: PRESENT: no acute distress, well-developed, well-nourished Head exam: PRESENT: atraumatic, normocephalic Eye exam: PRESENT: conjunctiva pink, EOMI, PERRLA. ABSENT: scleral icterus Ear exam: PRESENT: normal external ear exam Mouth exam: PRESENT: moist, tongue midline Neck exam: PRESENT: full ROM. ABSENT: carotid bruit, JVD, lymphadenopathy, thyromegaly Respiratory exam: PRESENT: clear to auscultation sarah Cardiovascular exam: PRESENT: RRR. ABSENT: diastolic murmur, rubs, systolic murmur Pulses: PRESENT: normal dorsalis pedis pul, +2 pedal pulses bilateral Vascular exam: PRESENT: normal capillary refill GI/Abdominal exam: PRESENT: normal bowel sounds, soft. ABSENT: distended, guarding, mass, organolmegaly, rebound, tenderness Rectal exam: PRESENT: deferred Extremities exam: ABSENT: pedal edema Neurological exam: PRESENT: alert, awake, oriented to person, oriented to place , oriented to time, oriented to situation, CN II-XII grossly intact. ABSENT: motor sensory deficit Psychiatric exam: PRESENT: appropriate affect, normal mood. ABSENT: homicidal ideation, suicidal ideation Skin exam: PRESENT: dry, intact, warm. ABSENT: cyanosis, rash Results Laboratory Results: 06/08/17 05:40 06/08/17 05:40 06/08/17 06/08/17 05:40 05:40 WBC 11.2 H RBC 3.47 L Hgb 11.5 L Hct 34.5 L MCV 99 H MCH 33.1 MCHC 33.3 RDW 12.9 Plt Count 262 Seg Neutrophils % 54.4 Lymphocytes % 34.0 Monocytes % 8.1 Eosinophils % 2.3 Basophils % 1.2 Absolute Neutrophils 6.1 Absolute Lymphocytes 3.8 Absolute Monocytes 0.9 Absolute Eosinophils 0.3 Absolute Basophils 0.1 Sodium 139.4 Potassium 4.2 Chloride 105 Carbon Dioxide 24 Anion Gap 10 BUN 11 Creatinine 0.83 Est GFR ( Amer) > 60 Est GFR (Non-Af Amer) > 60 Glucose 234 H Calcium 9.9 Impressions: Pelvis X-Ray 06/07/17 19:27 IMPRESSION: Mild cortical irregularity in the upper right femoral neck concerning for possible nondisplaced fracture. Consider MRI or CT to further assess. Femur X-Ray 06/07/17 19:28 IMPRESSION: Mild cortical irregularity in the upper right femoral neck concerning for possible nondisplaced fracture. Consider MRI or CT to further assess. Lower Extremity CT 06/07/17 21:19 IMPRESSION: There is mild cortical irregularity in the subcapital portion of the upper right femoral neck, seen best on the coronal reconstructions, this appearance remains suspicious for nondisplaced fracture. Chest X-Ray 06/08/17 00:00 IMPRESSION: No significant interval change. No acute findings. Other findings as noted above Assessment & Plan - Diagnosis (1) Fall Qualifiers: Encounter type: initial encounter Qualified Code(s): W19.XXXA - Unspecified fall, initial encounter Is this a current diagnosis for this admission?: YesPlan: From the mechanical fall (2) Fracture of femoral neck, right Qualifiers: Encounter type: initial encounter Fracture type: closed Qualified Code(s): S72.001A - Fracture of unspecified part of neck of right femur, initial encounter for closed fracture Is this a current diagnosis for this admission?: YesPlan: Consult Ortho start the Lovenox for DVT prophylaxis (3) COPD (chronic obstructive pulmonary disease) Qualifiers: COPD type: unspecified COPD Qualified Code(s): J44.9 - Chronic obstructive pulmonary disease, unspecified Is this a current diagnosis for this admission?: YesPlan: Get a chest x-ray before the surgery and continues to nebulizer treatment (4) Osteoarthritis Qualifiers: Osteoarthritis location: unspecified site Is this a current diagnosis for this admission?: Yes (5) Lung cancer Qualifiers: Lung location: unspecified part of lung Is this a current diagnosis for this admission?: YesPlan: Currently stable (6) Hypertension Qualifiers: Hypertension type: essential hypertension Qualified Code(s): I10 - Essential (primary) hypertension Is this a current diagnosis for this admission?: YesPlan: Continues current medication (7) Hyperlipidemia Qualifiers: Hyperlipidemia type: other hyperlipidemia Qualified Code(s): E78.4 - Other hyperlipidemia Is this a current diagnosis for this admission?: Yes - Time Time Spent: 30 to 50 Minutes Medications reviewed and adjusted accordingly: Yes Anticipated discharge: Home Within: Other - Inpatient Certification Medical Necessity: Need Close Monitoring Due to Risk of Patient Decompensation, Need for Surgery 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
[2017-06-08] MEDS: ENOXAPARIN SODIUM INJ 40 MG/0.4 ML DISP.SYRIN SUBCUT SCH (11:55)
[2017-06-08] MEDS ORDERED: PROPOFOL INJ 200 MG/20 ML VIAL IV ONE (16:57)
[2017-06-08] MEDS ORDERED: FENTANYL CITRATE INJ/PF 100 MCG/2 ML AMPUL ONE (16:57)
[2017-06-08] MEDS ORDERED: MIDAZOLAM 2 MG/2 ML INJ ONE (16:57)
[2017-06-08] MEDS ORDERED: CEFAZOLIN INJ 1 GM VIAL ONE (17:18)
[2017-06-08] MEDS ORDERED: FENTANYL CITRATE INJ/PF 100 MCG/2 ML AMPUL IV PRN ×3 (17:54)
[2017-06-08] MEDS ORDERED: MEPERIDINE HCL/PF INJ 25 MG/1 ML DISP.SYRIN IV PRN (17:54)
[2017-06-08] MEDS ORDERED: DIPHENHYDRAMINE HCL 50 MG/ML VIAL IV PRN (17:54)
[2017-06-08] MEDS ORDERED: PROMETHAZINE HCL INJ 25 MG/1 ML VIAL IV PRN ×2 (17:54)
[2017-06-08] MEDS ORDERED: MORPHINE SULFATE 10 MG/ML INJ IV PRN (17:54)
[2017-06-08] MEDS ORDERED: RINGERS SOLUTION,LACTATED 1,000 ML IV PRN (19:12)
[2017-06-08] MEDS: CEFTRIAXONE 1 GM/D5W RTU 1 GM/50 ML RTUPB IV SCH (21:40)
[2017-06-08] MEDS: OXYCODONE-ACETAMINOPHEN 5-325 MG TABLET PO PRN (21:40)
[2017-06-08] MEDS: INSULIN LISPRO 100 UNIT/ML 3 ML VIAL SUBCUT PRN (21:40)
--- NOTE | 2017-06-09 03:37 | RADIOLOGY REPORT (SQ) ---
EXAM DESCRIPTION: NO CHG FLUORO COMPLETE DATE/TIME: 06/08/2017 6:55 pm REASON FOR STUDY: CANNULATED SCREWS FINDINGS: Please see combined report for performance of procedure and radiologic supervision and int erpretation. IMPRESSION: Please see combined report for performance of procedure and radiologic supervision and i nterpretation.
--- NOTE | 2017-06-09 03:40 | RADIOLOGY REPORT (SQ) ---
EXAM DESCRIPTION: HIP IN OPERATING RM COMPLETED DATE/TIME: 06/08/2017 6:56 pm REASON FOR STUDY: CANNULATED SCREWS COMPARISON: None. NUMBER OF VIEWS: 3 images. Fluoro time 0.9 minutes. TECHNIQUE: Digital radiographic images of the right hip post-procedure. RADIATION DOSE: Fluoro time: 0.9 minutes. 3 images. LIMITATIONS: None. FINDINGS: Portable C-arm images obtained and interpreted by the performing clinician at time of exam ination to facilitate surgical outcome. IMPRESSION: As above. TECHNICAL DOCUMENTATION: JOB ID: [id number] [employer]- All Rights Reserved
[2017-06-09 05:13] LABS: ABSOLUTE BASOPHILS # (AUTO) 0.1 10^3/uL (0.0-0.2); ABSOLUTE EOSINOPHILS # (AUTO) 0.3 10^3/uL (0.0-0.6); ABSOLUTE LYMPHOCYTES (AUTO) 3.8 10^3/uL (0.5-4.7); ABSOLUTE NEUT (AUTO) 9.6 10^3/uL (1.7-8.2); BASOPHILS % (AUTO) 0.9 % (0-2); EOSINOPHILS % (AUTO) 1.7 % (0-6); HEMATOCRIT 39.9 % (36.0-47.0); HEMOGLOBIN 12.9 g/dL (12.0-15.5); HGB HCT DIFFERENCE -1.2; LYMPHOCYTES % (AUTO) 25.9 % (13-45); MEAN CORPUSCULAR HEMOGLOBIN 32.1 pg (27.0-33.4); MEAN CORPUSCULAR HGB CONC 32.3 g/dL (32.0-36.0); MEAN CORPUSCULAR VOLUME 100 fl (80-97); MONOCYTES % (AUTO) 6.9 % (3-13); RED BLOOD COUNT 4.01 10^6/uL (3.72-5.28); SEGMENTED NEUTROPHILS % (AUTO) 64.6 % (42-78); WHITE BLOOD COUNT 14.8 10^3/uL (4.0-10.5)
[2017-06-09] MEDS: OXYCODONE-ACETAMINOPHEN 5-325 MG TABLET PO PRN ×3 (05:41→17:24)
[2017-06-09] MEDS: LANSOPRAZOLE 15 MG TAB.RAP.DR PO SCH ×2 (05:41→17:24)
[2017-06-09 06:10] LABS: ANION GAP 12 (5-19); BLOOD UREA NITROGEN 9 mg/dL (7-20); CALCIUM 10.2 mg/dL (8.4-10.2); CARBON DIOXIDE 26 mmol/L (22-30); CHLORIDE 102 mmol/L (98-107); GLUCOSE 237 mg/dL (75-110); POTASSIUM 4.2 mmol/L (3.6-5.0)
--- NOTE | 2017-06-09 08:56 | RADIOLOGY REPORT (SQ) ---
EXAM DESCRIPTION: HIP RIGHT AP/LATERAL COMPLETED DATE/TIME: 06/09/2017 8:40 am REASON FOR STUDY: s/p right hip fx surgery COMPARISON: 06/07/2017 NUMBER OF VIEWS: 2 view(s). TECHNIQUE: Digital radiographic images of the right hip post-procedure. LIMITATIONS: None. FINDINGS: BONES: No worrisome or unexpected findings post-procedure. DEVICE: Patient is status post right hip pinning. 3 orthopedic nails are identified transfixing the proximal right femur SOFT TISSUES: No worrisome findings. Expected postoperative soft tissue changes. IMPRESSION: SATISFACTORY POSTOPERATIVE RIGHT HIP. TECHNICAL DOCUMENTATION: JOB ID: [id number] [employer]- All Rights Reserved
--- NOTE | 2017-06-09 09:51 | PDOC PROGRESS REPORT ---
Subjective Progress Note for:: 06/09/17 Subjective:: Patient is currently doing well. Patient's underwent for the right hip surgery. Patient's denied any chest pain denied any shortness of the breath. Physical Exam Vital Signs: Temp Pulse Resp BP Pulse Ox 98.3 F 102 H 20 152/70 H 94 06/09/17 07:57 06/09/17 07:57 06/09/17 07:57 06/09/17 07:57 06/09/17 07:57 Intake & Output 06/08/17 06/09/17 06/10/17 06:59 06:59 06:59 Intake Total 400 3049 Output Total 100 Balance 400 2949 Weight 80.5 kg 80.2 kg General appearance: PRESENT: no acute distress, well-developed, well-nourished Head exam: PRESENT: atraumatic, normocephalic Eye exam: PRESENT: conjunctiva pink, EOMI, PERRLA. ABSENT: scleral icterus Ear exam: PRESENT: normal external ear exam Mouth exam: PRESENT: moist, tongue midline Neck exam: PRESENT: full ROM. ABSENT: carotid bruit, JVD, lymphadenopathy, thyromegaly Respiratory exam: PRESENT: clear to auscultation sarah Cardiovascular exam: PRESENT: RRR. ABSENT: diastolic murmur, rubs, systolic murmur Pulses: PRESENT: normal dorsalis pedis pul, +2 pedal pulses bilateral Vascular exam: PRESENT: normal capillary refill GI/Abdominal exam: PRESENT: normal bowel sounds, soft. ABSENT: distended, guarding, mass, organolmegaly, rebound, tenderness Rectal exam: PRESENT: deferred Neurological exam: PRESENT: alert, awake, oriented to person, oriented to place , oriented to time, oriented to situation, CN II-XII grossly intact. ABSENT: motor sensory deficit Psychiatric exam: PRESENT: appropriate affect, normal mood. ABSENT: homicidal ideation, suicidal ideation Skin exam: PRESENT: dry, intact, warm. ABSENT: cyanosis, rash Results Laboratory Results: 06/09/17 04:33 06/09/17 05:39 06/09/17 06/09/17 06/09/17 04:33 04:33 05:39 WBC 14.8 H RBC 4.01 Hgb 12.9 Hct 39.9 MCV 100 H MCH 32.1 MCHC 32.3 RDW 13.0 Plt Count 263 Seg Neutrophils % 64.6 Lymphocytes % 25.9 Monocytes % 6.9 Eosinophils % 1.7 Basophils % 0.9 Absolute Neutrophils 9.6 H Absolute Lymphocytes 3.8 Absolute Monocytes 1.0 Absolute Eosinophils 0.3 Absolute Basophils 0.1 Sodium Cancelled 140.0 Potassium Cancelled 4.2 Chloride Cancelled 102 Carbon Dioxide Cancelled 26 Anion Gap Cancelled 12 BUN Cancelled 9 Creatinine Cancelled 0.90 Est GFR ( Amer) Cancelled > 60 Est GFR (Non-Af Amer) Cancelled > 60 Glucose Cancelled 237 H Calcium Cancelled 10.2 Impressions: Pelvis X-Ray 06/07/17 19:27 IMPRESSION: Mild cortical irregularity in the upper right femoral neck concerning for possible nondisplaced fracture. Consider MRI or CT to further assess. Femur X-Ray 06/07/17 19:28 IMPRESSION: Mild cortical irregularity in the upper right femoral neck concerning for possible nondisplaced fracture. Consider MRI or CT to further assess. Lower Extremity CT 06/07/17 21:19 IMPRESSION: There is mild cortical irregularity in the subcapital portion of the upper right femoral neck, seen best on the coronal reconstructions, this appearance remains suspicious for nondisplaced fracture. Chest X-Ray 06/08/17 00:00 IMPRESSION: No significant interval change. No acute findings. Other findings as noted above Fluoroscopy 06/08/17 00:00 IMPRESSION: Please see combined report for performance of procedure and radiologic supervision and interpretation. Hip X-Ray 06/08/17 00:00 IMPRESSION: As above. Hip/Pelvis X-Ray 06/09/17 00:00 IMPRESSION: SATISFACTORY POSTOPERATIVE RIGHT HIP. Assessment & Plan - Diagnosis (1) Fall Qualifiers: Encounter type: initial encounter Qualified Code(s): W19.XXXA - Unspecified fall, initial encounter Is this a current diagnosis for this admission?: Yes (2) Fracture of femoral neck, right Qualifiers: Encounter type: initial encounter Fracture type: closed Qualified Code(s): S72.001A - Fracture of unspecified part of neck of right femur, initial encounter for closed fracture Is this a current diagnosis for this admission?: YesPlan: Status post right hip surgery postop day #1 continues to Lovenox 40 mg subcu for DVT prophylaxis (3) COPD (chronic obstructive pulmonary disease) Qualifiers: COPD type: unspecified COPD Qualified Code(s): J44.9 - Chronic obstructive pulmonary disease, unspecified Is this a current diagnosis for this admission?: YesPlan: Get a chest x-ray before the surgery and continues to nebulizer treatment (4) Osteoarthritis Qualifiers: Osteoarthritis location: unspecified site Is this a current diagnosis for this admission?: Yes (5) Lung cancer Qualifiers: Lung location: unspecified part of lung Is this a current diagnosis for this admission?: YesPlan: Currently stable (6) Hypertension Qualifiers: Hypertension type: essential hypertension Qualified Code(s): I10 - Essential (primary) hypertension Is this a current diagnosis for this admission?: YesPlan: Continues current medication (7) Hyperlipidemia Qualifiers: Hyperlipidemia type: other hyperlipidemia Qualified Code(s): E78.4 - Other hyperlipidemia Is this a current diagnosis for this admission?: Yes - Time Time Spent with patient: 15-24 minutes Medications reviewed and adjusted accordingly: Yes Anticipated discharge: Other Within: Other - Inpatient Certification Medical Necessity: Need Close Monitoring Due to Risk of Patient Decompensation, Need for IV Antibiotics 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
[2017-06-09] MEDS: ENOXAPARIN SODIUM INJ 40 MG/0.4 ML DISP.SYRIN SUBCUT SCH (10:23)
[2017-06-09] MEDS: INSULIN LISPRO 100 UNIT/ML 3 ML VIAL SUBCUT PRN ×3 (13:10→22:51)
--- NOTE | 2017-06-09 17:21 | PDOC CONSULTATION ---
Consultation Consult Date: 06/08/17 Consult reason:: Right nondisplaced femoral neck fracture History of Present Illness Admission Date/PCP: 06/07/17 23:34 Patient complains of: Right hip pain with ambulation and weightbearing History of Present Illness: 72-year-old female with diabetes and other medical comorbidities. Patient fell in the bathroom to find the right hip and attempted to ambulate and had increased right hip pain. Patient came to the ER and x-ray showed no obvious fracture but a subsequent CT scan showed a nondisplaced femoral neck fracture at the head neck junction. Patient denies any previous injuries. Only complaint is pain with range of motion and weightbearing. Denies any numbness or tingling or paresthesias. Past Medical History Cardiac Medical History: Reports: Hyperlipidema, Hypertension Pulmonary Medical History: Reports: Asthma, Chronic Obstructive Pulmonary Disease (COPD), Pneumonia Endocrine Medical History: Reports: Diabetes Mellitus Type 2 Malignancy Medical History: Reports: Lung Cancer - right lung GI Medical History: Reports: Gastroesophageal Reflux Disease Musculoskeltal Medical History: Reports: Arthritis Psychiatric Medical History: Denies: Depression Past Surgical History Past Surgical History: Reports: Other - Status post lobectomy for the lung cancer Social History Lives with: Alone Smoking Status: Current Every Day Smoker Frequency of Alcohol Use: None Hx Recreational Drug Use: No Drugs: None Hx Prescription Drug Abuse: No - Advance Directive Resuscitation Status: Full Code Family History Family History: Reviewed & Not Pertinent, DM, Hyperlipidemia, Hypertension Parental Family History Reviewed: No Children Family History Reviewed: No Sibling(s) Family History Reviewed.: No Medication/Allergy Home Medications: Glipizide [Glucotrol 10 mg Tablet] 10 mg PO BID 06/08/17 Metformin HCl [Glucophage] 1,000 mg PO BIDACBS 06/08/17 Allergies/Adverse Reactions: peppermint [Peppermint] Allergy (Verified 02/17/16 02:52) Review of Systems All systems: reviewed and no additional remarkable complaints except as stated - For the musculoskeletal portion which was discussed in HPI Physical Exam Vital Signs: Temp Pulse Resp BP Pulse Ox 37.1 C 100 20 143/69 H 94 06/09/17 16:00 06/09/17 16:00 06/09/17 16:00 06/09/17 16:00 06/09/17 16:00 Intake & Output 06/08/17 06/09/17 06/10/17 06:59 06:59 06:59 Intake Total 400 3049 360 Output Total 100 Balance 400 2949 360 Weight 80.5 kg 80.2 kg Adult Front & Back Image: 1 - Pain with palpation of the right groin and pain with attempted range of motion of the right hip. Results Laboratory Results: 06/09/17 04:33 06/09/17 05:39 06/09/17 06/09/17 06/09/17 04:33 04:33 05:39 WBC 14.8 H RBC 4.01 Hgb 12.9 Hct 39.9 MCV 100 H MCH 32.1 MCHC 32.3 RDW 13.0 Plt Count 263 Seg Neutrophils % 64.6 Lymphocytes % 25.9 Monocytes % 6.9 Eosinophils % 1.7 Basophils % 0.9 Absolute Neutrophils 9.6 H Absolute Lymphocytes 3.8 Absolute Monocytes 1.0 Absolute Eosinophils 0.3 Absolute Basophils 0.1 Sodium Cancelled 140.0 Potassium Cancelled 4.2 Chloride Cancelled 102 Carbon Dioxide Cancelled 26 Anion Gap Cancelled 12 BUN Cancelled 9 Creatinine Cancelled 0.90 Est GFR ( Amer) Cancelled > 60 Est GFR (Non-Af Amer) Cancelled > 60 Glucose Cancelled 237 H Calcium Cancelled 10.2 Impressions: Pelvis X-Ray 06/07/17 19:27 IMPRESSION: Mild cortical irregularity in the upper right femoral neck concerning for possible nondisplaced fracture. Consider MRI or CT to further assess. Femur X-Ray 06/07/17 19:28 IMPRESSION: Mild cortical irregularity in the upper right femoral neck concerning for possible nondisplaced fracture. Consider MRI or CT to further assess. Lower Extremity CT 06/07/17 21:19 IMPRESSION: There is mild cortical irregularity in the subcapital portion of the upper right femoral neck, seen best on the coronal reconstructions, this appearance remains suspicious for nondisplaced fracture. Chest X-Ray 06/08/17 00:00 IMPRESSION: No significant interval change. No acute findings. Other findings as noted above Fluoroscopy 06/08/17 00:00 IMPRESSION: Please see combined report for performance of procedure and radiologic supervision and interpretation. Hip X-Ray 06/08/17 00:00 IMPRESSION: As above. Hip/Pelvis X-Ray 06/09/17 00:00 IMPRESSION: SATISFACTORY POSTOPERATIVE RIGHT HIP. Status: Image reviewed by me Assessment & Plan - Diagnosis (1) Fracture of femoral neck, right Qualifiers: Encounter type: initial encounter Fracture type: closed Qualified Code(s): S72.001A - Fracture of unspecified part of neck of right femur, initial encounter for closed fracture Is this a current diagnosis for this admission?: YesPlan: Patient is n.p.o. and consented for percutaneous pinning of right nondisplaced femoral neck fracture. Risk and benefits were discussed and the patient seemed to understand. Currently keep her bedrest and hydrated. Pain control through IV access. Patient will go for procedure this afternoon.
--- NOTE | 2017-06-09 17:24 | Operative Report ---
Operative Report DATE OF SURGERY: 06/08/17 PREOPERATIVE DIAGNOSIS: Nondisplaced right subcapital femur neck fracture POSTOPERATIVE DIAGNOSIS: Same OPERATION: Percutaneous pinning of right femoral neck fracture SURGEON: MARLEEN MORAES ANESTHESIA: GA TISSUE REMOVED OR ALTERED: None COMPLICATIONS: None ESTIMATED BLOOD LOSS: 10 mL INTRAOPERATIVE FINDINGS: As above PROCEDURE: Procedure In Detail: Patient was seen and evaluated in the preoperative holding area. The right lower extremity was initialized and marked. Patient received 1g of Ancef IV for bacterial prophylaxis. Patient was taken back to the operative room where transferred to the operative table and placed under spinal anesthesia. Once they were adequately anesthetized the right lower extremity is placed in a flexed abducted external rotated position and carefully padded and the left lower extremity was placed in traction. A surgical team debriefing was performed ensuring all instrumentation was available, the surgical procedure was discussed with possible concerns reviewed. Traction, adduction and internal rotation of the lower extremity was done C-arm fluoroscopy was used confirming anatomic reduction of the right femoral neck fracture. The lower extremity was prepped with ChloraPrep and draped in a sterile fashion. A timeout was done identifying correct patient, procedure and extremity everyone in attendance agree with this and verbalized no concerns. Surgical incision was made careful dissection was done through the fascia down to the lateral cortex of the femur. With the use of a threaded K wire I drilled along the more superior anterior aspect of the neck crossing the fracture line. Lateral projection was then done confirming an anterior superior placed wire. I then used the aiming device and placed a second wire posterior and superior and lastly a wire was placed along the inferior aspect of the neck along the calcar. This gave me a inverse triangular configuration. AP and lateral projections were done confirming appropriate placement of my guidewires. I then placed 3 partially-threaded 6.5 mm cannulated screws lengths being in 80, 80, 80 mm. I got excellent fixation across the fracture into the subchondral bone. AP lateral radiographs were done demonstrating no evidence of interarticular screw penetration. Then under live fluoroscopy the hip was ranged to confirm there is no evidence of intra-articular penetration. I then copiously irrigated the wound with normal saline. A peripheral vasculature was carefully coagulated. The deep fascia was closed with interrupted 2-0 Vicryl suture. Skin was closed with a 0 Vicryl, 2-0 Vicryl and leonila for skin. Xeroform 4 x 4 dressing and Tegaderm was applied. Patient was taken out of the fracture table and transferred to PACU in stable condition.
--- NOTE | 2017-06-09 17:26 | PDOC PROGRESS REPORT ---
Subjective Progress Note for:: 06/09/17 Physical Exam Vital Signs: Temp Pulse Resp BP Pulse Ox 37.1 C 100 20 143/69 H 94 06/09/17 16:00 06/09/17 16:00 06/09/17 16:00 06/09/17 16:00 06/09/17 16:00 Intake & Output 06/08/17 06/09/17 06/10/17 06:59 06:59 06:59 Intake Total 400 3049 360 Output Total 100 Balance 400 2949 360 Weight 80.5 kg 80.2 kg Adult Front & Back Image: 1 - Dressing is dry clean and intact. Neurovascular intact distally. Results Laboratory Results: 06/09/17 04:33 06/09/17 05:39 06/09/17 06/09/17 06/09/17 04:33 04:33 05:39 WBC 14.8 H RBC 4.01 Hgb 12.9 Hct 39.9 MCV 100 H MCH 32.1 MCHC 32.3 RDW 13.0 Plt Count 263 Seg Neutrophils % 64.6 Lymphocytes % 25.9 Monocytes % 6.9 Eosinophils % 1.7 Basophils % 0.9 Absolute Neutrophils 9.6 H Absolute Lymphocytes 3.8 Absolute Monocytes 1.0 Absolute Eosinophils 0.3 Absolute Basophils 0.1 Sodium Cancelled 140.0 Potassium Cancelled 4.2 Chloride Cancelled 102 Carbon Dioxide Cancelled 26 Anion Gap Cancelled 12 BUN Cancelled 9 Creatinine Cancelled 0.90 Est GFR ( Amer) Cancelled > 60 Est GFR (Non-Af Amer) Cancelled > 60 Glucose Cancelled 237 H Calcium Cancelled 10.2 Impressions: Pelvis X-Ray 06/07/17 19:27 IMPRESSION: Mild cortical irregularity in the upper right femoral neck concerning for possible nondisplaced fracture. Consider MRI or CT to further assess. Femur X-Ray 06/07/17 19:28 IMPRESSION: Mild cortical irregularity in the upper right femoral neck concerning for possible nondisplaced fracture. Consider MRI or CT to further assess. Lower Extremity CT 06/07/17 21:19 IMPRESSION: There is mild cortical irregularity in the subcapital portion of the upper right femoral neck, seen best on the coronal reconstructions, this appearance remains suspicious for nondisplaced fracture. Chest X-Ray 06/08/17 00:00 IMPRESSION: No significant interval change. No acute findings. Other findings as noted above Fluoroscopy 06/08/17 00:00 IMPRESSION: Please see combined report for performance of procedure and radiologic supervision and interpretation. Hip X-Ray 06/08/17 00:00 IMPRESSION: As above. Hip/Pelvis X-Ray 06/09/17 00:00 IMPRESSION: SATISFACTORY POSTOPERATIVE RIGHT HIP. Status: Image reviewed by me Assessment & Plan - Diagnosis (1) Fracture of femoral neck, right Qualifiers: Encounter type: initial encounter Fracture type: closed Qualified Code(s): S72.001A - Fracture of unspecified part of neck of right femur, initial encounter for closed fracture Is this a current diagnosis for this admission?: Yes - Plan Summary Plan Summary: Patient to be 50% weightbearing after undergoing percutaneous pinning of the right femoral neck fracture. Is postop day 1. Continue physical therapy and pain control. Anticipate intermediate facility at rehab center once discharged.
[2017-06-09] MEDS: CEFTRIAXONE 1 GM/D5W RTU 1 GM/50 ML RTUPB IV SCH (22:40)
[2017-06-10 05:22] LABS: ABSOLUTE BASOPHILS # (AUTO) 0.1 10^3/uL (0.0-0.2); ABSOLUTE EOSINOPHILS # (AUTO) 0.3 10^3/uL (0.0-0.6); ABSOLUTE LYMPHOCYTES (AUTO) 3.1 10^3/uL (0.5-4.7); ABSOLUTE MONOCYTES (AUTO) 1.6 10^3/uL (0.1-1.4); BASOPHILS % (AUTO) 0.8 % (0-2); EOSINOPHILS % (AUTO) 1.8 % (0-6); HEMATOCRIT 37.1 % (36.0-47.0); HEMOGLOBIN 11.9 g/dL (12.0-15.5); HGB HCT DIFFERENCE -1.4; LYMPHOCYTES % (AUTO) 19.3 % (13-45); MEAN CORPUSCULAR HEMOGLOBIN 32.4 pg (27.0-33.4); MEAN CORPUSCULAR HGB CONC 32.2 g/dL (32.0-36.0); MEAN CORPUSCULAR VOLUME 100 fl (80-97); RED BLOOD COUNT 3.69 10^6/uL (3.72-5.28); SEGMENTED NEUTROPHILS % (AUTO) 68.1 % (42-78); WHITE BLOOD COUNT 16.1 10^3/uL (4.0-10.5)
[2017-06-10] MEDS: OXYCODONE-ACETAMINOPHEN 5-325 MG TABLET PO PRN (05:27)
[2017-06-10] MEDS: LANSOPRAZOLE 15 MG TAB.RAP.DR PO SCH ×2 (05:27→17:58)
[2017-06-10 06:47] LABS: ANION GAP 10 (5-19); BLOOD UREA NITROGEN 8 mg/dL (7-20); CALCIUM 9.6 mg/dL (8.4-10.2); CARBON DIOXIDE 23 mmol/L (22-30); CHLORIDE 103 mmol/L (98-107); CREATININE RESULT 0.85 mg/dL (0.52-1.25); GLUCOSE 228 mg/dL (75-110); POTASSIUM 4.1 mmol/L (3.6-5.0); SODIUM 136.4 mmol/L (137-145)
[2017-06-10] MEDS: ENOXAPARIN SODIUM INJ 40 MG/0.4 ML DISP.SYRIN SUBCUT SCH (09:19)
[2017-06-10] MEDS: INSULIN LISPRO 100 UNIT/ML 3 ML VIAL SUBCUT PRN ×3 (09:20→22:50)
[2017-06-10] MEDS: ACETAMINOPHEN 325 MG TABLET PO PRN ×2 (17:58→22:50)
--- NOTE | 2017-06-10 18:51 | PDOC PROGRESS REPORT ---
Subjective Progress Note for:: 06/10/17 Subjective:: Patient was admitted because she sustained a right hip fracture, she is extremely noncompliant and continues to smoke despite history of lung cancer. Family is contemplating long-term care placement. Physical Exam Vital Signs: Temp Pulse Resp BP Pulse Ox 98.9 F 106 H 16 144/73 H 95 06/10/17 16:36 06/10/17 16:36 06/10/17 16:36 06/10/17 16:36 06/10/17 16:36 Intake & Output 06/09/17 06/10/17 06/11/17 06:59 06:59 06:59 Intake Total 3049 457 579 Output Total 100 Balance 2949 457 579 Weight 80.2 kg 80.2 kg General appearance: PRESENT: no acute distress Eye exam: PRESENT: PERRLA Respiratory exam: PRESENT: clear to auscultation sarah Cardiovascular exam: PRESENT: +S1, +S2 GI/Abdominal exam: PRESENT: soft Neurological exam: PRESENT: alert, CN II-XII grossly intact Results Laboratory Results: 06/10/17 04:56 06/10/17 06:16 06/10/17 06/10/17 06/10/17 04:56 04:56 06:16 WBC 16.1 H RBC 3.69 L Hgb 11.9 L Hct 37.1 MCV 100 H MCH 32.4 MCHC 32.2 RDW 13.0 Plt Count 265 Seg Neutrophils % 68.1 Lymphocytes % 19.3 Monocytes % 10.0 Eosinophils % 1.8 Basophils % 0.8 Absolute Neutrophils 11.0 H Absolute Lymphocytes 3.1 Absolute Monocytes 1.6 H Absolute Eosinophils 0.3 Absolute Basophils 0.1 Sodium Cancelled 136.4 L Potassium Cancelled 4.1 Chloride Cancelled 103 Carbon Dioxide Cancelled 23 Anion Gap Cancelled 10 BUN Cancelled 8 Creatinine Cancelled 0.85 Est GFR ( Amer) Cancelled > 60 Est GFR (Non-Af Amer) Cancelled > 60 Glucose Cancelled 228 H Calcium Cancelled 9.6 06/08/17 00:05 Catheterized Urine Urine Culture - Final NO GROWTH 2 DAYS Impressions: Pelvis X-Ray 06/07/17 19:27 IMPRESSION: Mild cortical irregularity in the upper right femoral neck concerning for possible nondisplaced fracture. Consider MRI or CT to further assess. Femur X-Ray 06/07/17 19:28 IMPRESSION: Mild cortical irregularity in the upper right femoral neck concerning for possible nondisplaced fracture. Consider MRI or CT to further assess. Lower Extremity CT 06/07/17 21:19 IMPRESSION: There is mild cortical irregularity in the subcapital portion of the upper right femoral neck, seen best on the coronal reconstructions, this appearance remains suspicious for nondisplaced fracture. Chest X-Ray 06/08/17 00:00 IMPRESSION: No significant interval change. No acute findings. Other findings as noted above Fluoroscopy 06/08/17 00:00 IMPRESSION: Please see combined report for performance of procedure and radiologic supervision and interpretation. Hip X-Ray 06/08/17 00:00 IMPRESSION: As above. Hip/Pelvis X-Ray 06/09/17 00:00 IMPRESSION: SATISFACTORY POSTOPERATIVE RIGHT HIP. Assessment & Plan - Diagnosis (1) Fracture of femoral neck, right Qualifiers: Encounter type: initial encounter Fracture type: closed Qualified Code(s): S72.001A - Fracture of unspecified part of neck of right femur, initial encounter for closed fracture Is this a current diagnosis for this admission?: Yes (2) Diabetes mellitus type 2 in nonobese Is this a current diagnosis for this admission?: Yes (3) COPD (chronic obstructive pulmonary disease) Qualifiers: COPD type: unspecified COPD Qualified Code(s): J44.9 - Chronic obstructive pulmonary disease, unspecified Is this a current diagnosis for this admission?: Yes (4) Hypertension Qualifiers: Hypertension type: essential hypertension Qualified Code(s): I10 - Essential (primary) hypertension Is this a current diagnosis for this admission?: Yes - Plan Summary Plan Summary: She will continue present treatment, discharge planning will arrange for [facility] placement for rehab
[2017-06-10] MEDS: CEFTRIAXONE 1 GM/D5W RTU 1 GM/50 ML RTUPB IV SCH (22:49)
[2017-06-11] MEDS: LANSOPRAZOLE 15 MG TAB.RAP.DR PO SCH ×2 (05:20→16:13)
[2017-06-11 05:53] LABS: ABSOLUTE BASOPHILS # (AUTO) 0.1 10^3/uL (0.0-0.2); ABSOLUTE EOSINOPHILS # (AUTO) 0.4 10^3/uL (0.0-0.6); ABSOLUTE LYMPHOCYTES (AUTO) 3.1 10^3/uL (0.5-4.7); ABSOLUTE MONOCYTES (AUTO) 1.5 10^3/uL (0.1-1.4); ABSOLUTE NEUT (AUTO) 8.5 10^3/uL (1.7-8.2); BASOPHILS % (AUTO) 0.9 % (0-2); EOSINOPHILS % (AUTO) 2.8 % (0-6); HEMATOCRIT 36.1 % (36.0-47.0); HEMOGLOBIN 11.5 g/dL (12.0-15.5); HGB HCT DIFFERENCE -1.6; LYMPHOCYTES % (AUTO) 22.6 % (13-45); MEAN CORPUSCULAR HGB CONC 31.9 g/dL (32.0-36.0); MEAN CORPUSCULAR VOLUME 100 fl (80-97); MONOCYTES % (AUTO) 10.8 % (3-13); RED CELL DISTRIBUTION WIDTH 12.8 % (11.5-14.0); SEGMENTED NEUTROPHILS % (AUTO) 62.9 % (42-78); WHITE BLOOD COUNT 13.5 10^3/uL (4.0-10.5)
[2017-06-11 06:02] LABS: ANION GAP 13 (5-19); BLOOD UREA NITROGEN 9 mg/dL (7-20); CALCIUM 9.4 mg/dL (8.4-10.2); CARBON DIOXIDE 23 mmol/L (22-30); CHLORIDE 103 mmol/L (98-107); CREATININE RESULT 0.83 mg/dL (0.52-1.25); GLUCOSE 214 mg/dL (75-110); POTASSIUM 4.1 mmol/L (3.6-5.0); SODIUM 138.8 mmol/L (137-145)
[2017-06-11] MEDS: ENOXAPARIN SODIUM INJ 40 MG/0.4 ML DISP.SYRIN SUBCUT SCH (09:35)
[2017-06-11] MEDS: INSULIN LISPRO 100 UNIT/ML 3 ML VIAL SUBCUT PRN ×4 (09:37→22:30)
--- NOTE | 2017-06-11 17:28 | PDOC PROGRESS REPORT ---
Subjective Progress Note for:: 06/11/17 Subjective:: Patient was admitted because of fracture of the right neck of the femur, she is a diabetic, she will be started on a regular medication for the control of diabetes, consultation will be requested from discharge planning to arrange for alf placement for rehabilitation. Physical Exam Vital Signs: Temp Pulse Resp BP Pulse Ox 98.6 F 108 H 17 153/76 H 94 06/11/17 16:06 06/11/17 16:06 06/11/17 16:06 06/11/17 16:06 06/11/17 16:06 Intake & Output 06/10/17 06/11/17 06/12/17 06:59 06:59 06:59 Intake Total 457 749 545 Balance 457 749 545 Weight 80.2 kg 85.1 kg General appearance: PRESENT: no acute distress Head exam: PRESENT: atraumatic, normocephalic Eye exam: PRESENT: PERRLA. ABSENT: scleral icterus Mouth exam: PRESENT: moist, tongue midline Neck exam: PRESENT: full ROM Cardiovascular exam: PRESENT: RRR, +S1, +S2 GI/Abdominal exam: PRESENT: normal bowel sounds, soft Rectal exam: PRESENT: deferred Neurological exam: PRESENT: alert Psychiatric exam: PRESENT: appropriate affect, normal mood Skin exam: PRESENT: dry, intact, warm Results Laboratory Results: 06/11/17 05:02 06/11/17 05:02 06/11/17 06/11/17 05:02 05:02 WBC 13.5 H RBC 3.60 L Hgb 11.5 L Hct 36.1 MCV 100 H MCH 32.0 MCHC 31.9 L RDW 12.8 Plt Count 285 Seg Neutrophils % 62.9 Lymphocytes % 22.6 Monocytes % 10.8 Eosinophils % 2.8 Basophils % 0.9 Absolute Neutrophils 8.5 H Absolute Lymphocytes 3.1 Absolute Monocytes 1.5 H Absolute Eosinophils 0.4 Absolute Basophils 0.1 Sodium 138.8 Potassium 4.1 Chloride 103 Carbon Dioxide 23 Anion Gap 13 BUN 9 Creatinine 0.83 Est GFR ( Amer) > 60 Est GFR (Non-Af Amer) > 60 Glucose 214 H Calcium 9.4 Impressions: Pelvis X-Ray 06/07/17 19:27 IMPRESSION: Mild cortical irregularity in the upper right femoral neck concerning for possible nondisplaced fracture. Consider MRI or CT to further assess. Femur X-Ray 06/07/17 19:28 IMPRESSION: Mild cortical irregularity in the upper right femoral neck concerning for possible nondisplaced fracture. Consider MRI or CT to further assess. Lower Extremity CT 06/07/17 21:19 IMPRESSION: There is mild cortical irregularity in the subcapital portion of the upper right femoral neck, seen best on the coronal reconstructions, this appearance remains suspicious for nondisplaced fracture. Chest X-Ray 06/08/17 00:00 IMPRESSION: No significant interval change. No acute findings. Other findings as noted above Fluoroscopy 06/08/17 00:00 IMPRESSION: Please see combined report for performance of procedure and radiologic supervision and interpretation. Hip X-Ray 06/08/17 00:00 IMPRESSION: As above. Hip/Pelvis X-Ray 06/09/17 00:00 IMPRESSION: SATISFACTORY POSTOPERATIVE RIGHT HIP. Assessment & Plan - Diagnosis (1) Fracture of femoral neck, right Qualifiers: Encounter type: initial encounter Fracture type: closed Qualified Code(s): S72.001A - Fracture of unspecified part of neck of right femur, initial encounter for closed fracture Is this a current diagnosis for this admission?: Yes (2) Diabetes mellitus type 2 in nonobese Is this a current diagnosis for this admission?: Yes (3) COPD (chronic obstructive pulmonary disease) Qualifiers: COPD type: unspecified COPD Qualified Code(s): J44.9 - Chronic obstructive pulmonary disease, unspecified Is this a current diagnosis for this admission?: Yes (4) Hypertension Qualifiers: Hypertension type: essential hypertension Qualified Code(s): I10 - Essential (primary) hypertension Is this a current diagnosis for this admission?: Yes - Plan Summary Plan Summary: She will continue present treatment
--- NOTE | 2017-06-11 18:05 | PDOC PROGRESS REPORT ---
Subjective Progress Note for:: 06/11/17 Subjective:: Continues to complain of pain according to the nursing staff. Has been doing minimal with physical therapy. Will require halfway facility for placement. Physical Exam Vital Signs: Temp Pulse Resp BP Pulse Ox 98.6 F 108 H 17 153/76 H 94 06/11/17 16:06 06/11/17 16:06 06/11/17 16:06 06/11/17 16:06 06/11/17 16:06 Intake & Output 06/10/17 06/11/17 06/12/17 06:59 06:59 06:59 Intake Total 457 749 545 Balance 457 749 545 Weight 80.2 kg 85.1 kg General appearance: PRESENT: no acute distress, disheveled Musculoskeletal exam: PRESENT: other - Right lower extremity: Dressing clean/dry /intact no erythema or drainage. Intact plantar flexion/dorsiflexion. No calf tenderness. Negative Homans Results Laboratory Results: 06/11/17 05:02 06/11/17 05:02 06/11/17 06/11/17 05:02 05:02 WBC 13.5 H RBC 3.60 L Hgb 11.5 L Hct 36.1 MCV 100 H MCH 32.0 MCHC 31.9 L RDW 12.8 Plt Count 285 Seg Neutrophils % 62.9 Lymphocytes % 22.6 Monocytes % 10.8 Eosinophils % 2.8 Basophils % 0.9 Absolute Neutrophils 8.5 H Absolute Lymphocytes 3.1 Absolute Monocytes 1.5 H Absolute Eosinophils 0.4 Absolute Basophils 0.1 Sodium 138.8 Potassium 4.1 Chloride 103 Carbon Dioxide 23 Anion Gap 13 BUN 9 Creatinine 0.83 Est GFR ( Amer) > 60 Est GFR (Non-Af Amer) > 60 Glucose 214 H Calcium 9.4 Impressions: Pelvis X-Ray 06/07/17 19:27 IMPRESSION: Mild cortical irregularity in the upper right femoral neck concerning for possible nondisplaced fracture. Consider MRI or CT to further assess. Femur X-Ray 06/07/17 19:28 IMPRESSION: Mild cortical irregularity in the upper right femoral neck concerning for possible nondisplaced fracture. Consider MRI or CT to further assess. Lower Extremity CT 06/07/17 21:19 IMPRESSION: There is mild cortical irregularity in the subcapital portion of the upper right femoral neck, seen best on the coronal reconstructions, this appearance remains suspicious for nondisplaced fracture. Chest X-Ray 06/08/17 00:00 IMPRESSION: No significant interval change. No acute findings. Other findings as noted above Fluoroscopy 06/08/17 00:00 IMPRESSION: Please see combined report for performance of procedure and radiologic supervision and interpretation. Hip X-Ray 06/08/17 00:00 IMPRESSION: As above. Hip/Pelvis X-Ray 06/09/17 00:00 IMPRESSION: SATISFACTORY POSTOPERATIVE RIGHT HIP. Assessment & Plan - Diagnosis (1) Fracture of femoral neck, right Qualifiers: Encounter type: subsequent encounter Fracture type: closed Is this a current diagnosis for this admission?: YesPlan: Status post closed reduction percutaneous pinning right femoral neck fracture #1 Physical therapy: 50% weightbearing right lower extremity #2 pain control #3 Xarelto for DVT prophylaxis #4 discharge planning patient will require halfway facility.
[2017-06-11] MEDS: ACETAMINOPHEN 325 MG TABLET PO PRN ×2 (18:14→22:30)
[2017-06-11] MEDS ORDERED: GLIPIZIDE 10 MG TABLET PO ONE (19:00)
[2017-06-11] MEDS ORDERED: METFORMIN HCL 500 MG TABLET PO ONE (19:00)
[2017-06-11] MEDS: CEFTRIAXONE 1 GM/D5W RTU 1 GM/50 ML RTUPB IV SCH (21:31)
[2017-06-12] MEDS: LANSOPRAZOLE 15 MG TAB.RAP.DR PO SCH ×2 (05:13→17:04)
[2017-06-12 06:25] LABS: ABSOLUTE BASOPHILS # (AUTO) 0.1 10^3/uL (0.0-0.2); ABSOLUTE EOSINOPHILS # (AUTO) 0.3 10^3/uL (0.0-0.6); ABSOLUTE LYMPHOCYTES (AUTO) 2.4 10^3/uL (0.5-4.7); ABSOLUTE MONOCYTES (AUTO) 1.4 10^3/uL (0.1-1.4); ABSOLUTE NEUT (AUTO) 7.9 10^3/uL (1.7-8.2); BASOPHILS % (AUTO) 0.8 % (0-2); EOSINOPHILS % (AUTO) 2.9 % (0-6); HEMATOCRIT 36.7 % (36.0-47.0); HEMOGLOBIN 11.9 g/dL (12.0-15.5); LYMPHOCYTES % (AUTO) 19.8 % (13-45); MEAN CORPUSCULAR HEMOGLOBIN 32.5 pg (27.0-33.4); MEAN CORPUSCULAR HGB CONC 32.4 g/dL (32.0-36.0); MEAN CORPUSCULAR VOLUME 101 fl (80-97); MONOCYTES % (AUTO) 11.3 % (3-13); RED BLOOD COUNT 3.65 10^6/uL (3.72-5.28); RED CELL DISTRIBUTION WIDTH 12.8 % (11.5-14.0); SEGMENTED NEUTROPHILS % (AUTO) 65.2 % (42-78); WHITE BLOOD COUNT 12.1 10^3/uL (4.0-10.5)
[2017-06-12 06:50] LABS: ANION GAP 10 (5-19); BLOOD UREA NITROGEN 11 mg/dL (7-20); CALCIUM 9.8 mg/dL (8.4-10.2); CARBON DIOXIDE 28 mmol/L (22-30); CHLORIDE 104 mmol/L (98-107); CREATININE RESULT 0.82 mg/dL (0.52-1.25); GLUCOSE 164 mg/dL (75-110); POTASSIUM 3.8 mmol/L (3.6-5.0); SODIUM 142.3 mmol/L (137-145)
[2017-06-12] MEDS: GLIPIZIDE 10 MG TABLET PO SCH ×2 (08:25→17:04)
[2017-06-12] MEDS: METFORMIN HCL 500 MG TABLET PO SCH ×2 (08:25→17:04)
[2017-06-12] MEDS: ENOXAPARIN SODIUM INJ 40 MG/0.4 ML DISP.SYRIN SUBCUT SCH (10:14)
[2017-06-12] MEDS: INSULIN LISPRO 100 UNIT/ML 3 ML VIAL SUBCUT PRN ×2 (12:29→22:24)
--- NOTE | 2017-06-12 16:06 | PDOC PROGRESS REPORT ---
Subjective Progress Note for:: 06/12/17 Subjective:: She was seen by the bedside, she has diarrhea, the plan is for her to go to facility for rehabilitation. She has a history of lung cancer but she is not on any active treatment for lung cancer, the senior living facility wants this fact stated in the record that she is not on any active treatment for cancer. Physical Exam Vital Signs: Temp Pulse Resp BP Pulse Ox 99.4 F 104 H 16 146/83 H 94 06/12/17 11:34 06/12/17 14:00 06/12/17 14:00 06/12/17 11:34 06/12/17 14:00 Intake & Output 06/11/17 06/12/17 06/13/17 06:59 06:59 06:59 Intake Total 749 1095 Balance 749 1095 Weight 85.1 kg 83 kg General appearance: PRESENT: no acute distress Eye exam: PRESENT: PERRLA Respiratory exam: PRESENT: clear to auscultation sarah Cardiovascular exam: PRESENT: +S1, +S2 GI/Abdominal exam: PRESENT: soft Neurological exam: PRESENT: alert Results Laboratory Results: 06/12/17 05:19 06/12/17 05:19 06/12/17 06/12/17 05:19 05:19 WBC 12.1 H RBC 3.65 L Hgb 11.9 L Hct 36.7 MCV 101 H MCH 32.5 MCHC 32.4 RDW 12.8 Plt Count 307 Seg Neutrophils % 65.2 Lymphocytes % 19.8 Monocytes % 11.3 Eosinophils % 2.9 Basophils % 0.8 Absolute Neutrophils 7.9 Absolute Lymphocytes 2.4 Absolute Monocytes 1.4 Absolute Eosinophils 0.3 Absolute Basophils 0.1 Sodium 142.3 Potassium 3.8 Chloride 104 Carbon Dioxide 28 Anion Gap 10 BUN 11 Creatinine 0.82 Est GFR ( Amer) > 60 Est GFR (Non-Af Amer) > 60 Glucose 164 H Calcium 9.8 Impressions: Pelvis X-Ray 06/07/17 19:27 IMPRESSION: Mild cortical irregularity in the upper right femoral neck concerning for possible nondisplaced fracture. Consider MRI or CT to further assess. Femur X-Ray 06/07/17 19:28 IMPRESSION: Mild cortical irregularity in the upper right femoral neck concerning for possible nondisplaced fracture. Consider MRI or CT to further assess. Lower Extremity CT 06/07/17 21:19 IMPRESSION: There is mild cortical irregularity in the subcapital portion of the upper right femoral neck, seen best on the coronal reconstructions, this appearance remains suspicious for nondisplaced fracture. Chest X-Ray 06/08/17 00:00 IMPRESSION: No significant interval change. No acute findings. Other findings as noted above Fluoroscopy 06/08/17 00:00 IMPRESSION: Please see combined report for performance of procedure and radiologic supervision and interpretation. Hip X-Ray 06/08/17 00:00 IMPRESSION: As above. Hip/Pelvis X-Ray 06/09/17 00:00 IMPRESSION: SATISFACTORY POSTOPERATIVE RIGHT HIP. Assessment & Plan - Diagnosis (1) Fracture of femoral neck, right Qualifiers: Encounter type: subsequent encounter Fracture type: closed Is this a current diagnosis for this admission?: Yes (2) Diabetes mellitus type 2 in nonobese Is this a current diagnosis for this admission?: Yes (3) COPD (chronic obstructive pulmonary disease) Qualifiers: COPD type: unspecified COPD Qualified Code(s): J44.9 - Chronic obstructive pulmonary disease, unspecified Is this a current diagnosis for this admission?: Yes (4) Hypertension Qualifiers: Hypertension type: essential hypertension Qualified Code(s): I10 - Essential (primary) hypertension Is this a current diagnosis for this admission?: Yes (5) Diarrhea Qualifiers: Diarrhea type: unspecified type Qualified Code(s): R19.7 - Diarrhea , unspecified Is this a current diagnosis for this admission?: YesPlan: send stool for clostridium difficle studies
--- NOTE | 2017-06-12 19:05 | PDOC PROGRESS REPORT ---
Subjective Progress Note for:: 06/12/17 Subjective:: Patient eating in bed. Pain in the right hip is adequately controlled. Still requiring max assist with physical therapy Physical Exam Vital Signs: Temp Pulse Resp BP Pulse Ox 36.7 C 112 H 17 141/71 H 93 06/12/17 16:27 06/12/17 16:27 06/12/17 16:27 06/12/17 16:27 06/12/17 16:27 Intake & Output 06/11/17 06/12/17 06/13/17 06:59 06:59 06:59 Intake Total 749 1095 635 Balance 749 1095 635 Weight 85.1 kg 83 kg Adult Front & Back Image: 1 - Dressing is dry clean and intact. She is neurovascular intact distally. Results Laboratory Results: 06/12/17 05:19 06/12/17 05:19 06/12/17 06/12/17 05:19 05:19 WBC 12.1 H RBC 3.65 L Hgb 11.9 L Hct 36.7 MCV 101 H MCH 32.5 MCHC 32.4 RDW 12.8 Plt Count 307 Seg Neutrophils % 65.2 Lymphocytes % 19.8 Monocytes % 11.3 Eosinophils % 2.9 Basophils % 0.8 Absolute Neutrophils 7.9 Absolute Lymphocytes 2.4 Absolute Monocytes 1.4 Absolute Eosinophils 0.3 Absolute Basophils 0.1 Sodium 142.3 Potassium 3.8 Chloride 104 Carbon Dioxide 28 Anion Gap 10 BUN 11 Creatinine 0.82 Est GFR ( Amer) > 60 Est GFR (Non-Af Amer) > 60 Glucose 164 H Calcium 9.8 Impressions: Pelvis X-Ray 06/07/17 19:27 IMPRESSION: Mild cortical irregularity in the upper right femoral neck concerning for possible nondisplaced fracture. Consider MRI or CT to further assess. Femur X-Ray 06/07/17 19:28 IMPRESSION: Mild cortical irregularity in the upper right femoral neck concerning for possible nondisplaced fracture. Consider MRI or CT to further assess. Lower Extremity CT 06/07/17 21:19 IMPRESSION: There is mild cortical irregularity in the subcapital portion of the upper right femoral neck, seen best on the coronal reconstructions, this appearance remains suspicious for nondisplaced fracture. Chest X-Ray 06/08/17 00:00 IMPRESSION: No significant interval change. No acute findings. Other findings as noted above Fluoroscopy 06/08/17 00:00 IMPRESSION: Please see combined report for performance of procedure and radiologic supervision and interpretation. Hip X-Ray 06/08/17 00:00 IMPRESSION: As above. Hip/Pelvis X-Ray 06/09/17 00:00 IMPRESSION: SATISFACTORY POSTOPERATIVE RIGHT HIP. Assessment & Plan - Diagnosis (1) Fracture of femoral neck, right Qualifiers: Encounter type: subsequent encounter Fracture type: closed Is this a current diagnosis for this admission?: Yes - Plan Summary Plan Summary: Patient is postop day 4 from percutaneous pinning of her right femoral neck fracture. Patient will continue to do 50% weightbearing as tolerated. Patient will continue with physical therapy until she is discharged to rehab facility. Continue DVT prophylaxis. Continue pain control. Change her dressing at discharge 10 OpSite dressing.
[2017-06-12] MEDS: ACETAMINOPHEN 325 MG TABLET PO PRN (21:26)
[2017-06-12] MEDS: CEFTRIAXONE 1 GM/D5W RTU 1 GM/50 ML RTUPB IV SCH (21:27)
[2017-06-13] MEDS: LANSOPRAZOLE 15 MG TAB.RAP.DR PO SCH ×2 (05:01→17:22)
[2017-06-13] MEDS: GLIPIZIDE 10 MG TABLET PO SCH ×2 (08:06→17:21)
[2017-06-13] MEDS: METFORMIN HCL 500 MG TABLET PO SCH ×2 (08:06→17:21)
[2017-06-13] MEDS: ENOXAPARIN SODIUM INJ 40 MG/0.4 ML DISP.SYRIN SUBCUT SCH (10:35)
--- NOTE | 2017-06-13 11:48 | PDOC TRANSFER SUMMARY ---
General - Admit/Disc Date/PCP Admission Date/Primary Care Provider: 06/07/17 23:34 Discharge Date: 06/13/17 - Discharge Diagnosis (1) Fracture of femoral neck, right Is this a current diagnosis for this admission?: Yes (2) Diabetes mellitus type 2 in nonobese Is this a current diagnosis for this admission?: Yes (3) COPD (chronic obstructive pulmonary disease) Is this a current diagnosis for this admission?: Yes (4) Hypertension Is this a current diagnosis for this admission?: Yes (5) Diarrhea Is this a current diagnosis for this admission?: Yes - Additional Information Resuscitation Status: Full Code Home Medications: Glipizide [Glucotrol 10 mg Tablet] 10 mg PO BID 06/08/17 Metformin HCl [Glucophage] 1,000 mg PO BIDACBS 06/08/17 Acetaminophen [Tylenol 325 mg Tablet] 650 mg PO Q4HP PRN #0 tablet 06/13/17 Insulin Glargine,Hum.rec.anlog [Lantus Solostar] 10 unit SQ DAILY #0 ml Ipratropium/Albuterol Sulfate [Duoneb 3 ml Ampul] 3 ml NEB RTQ6HP PRN #0 vial.neb 06/13/17 History of Present Illness Admission Date/PCP: 06/07/17 23:34 History of Present Illness: Patient is a 72-year-old female is extremely noncompliant, she continued to smoke cigarettes despite COPD and a history of lung cancer, she fell and sustained fracture of the neck of the right femur Hospital Course Hospital Course: She fell and sustained fracture of the right femur, she was seen in consultation by orthopedic and she underwent open reduction and internal fixation of the fracture without complications, the plan is to transfer to [facility] for rehabilitation. The family is contemplating long-term care in the [facility] because of progressive cognitive impairment. She is noncompliant she claimed to smoke cigarettes. Physical Exam Vital Signs: Temp Pulse Resp BP Pulse Ox 98.3 F 110 H 18 151/79 H 95 06/13/17 08:00 06/13/17 08:00 06/13/17 08:00 06/13/17 08:00 06/13/17 08:00 Intake & Output 06/12/17 06/13/17 06/14/17 06:59 06:59 06:59 Intake Total 1095 1035 Balance 1095 1035 Weight 83 kg 83.3 kg General appearance: PRESENT: no acute distress, well-developed, well-nourished Head exam: PRESENT: atraumatic, normocephalic Eye exam: PRESENT: conjunctiva pink, EOMI, PERRLA Ear exam: PRESENT: normal external ear exam Mouth exam: PRESENT: moist, tongue midline Respiratory exam: PRESENT: clear to auscultation sarah Cardiovascular exam: PRESENT: RRR Vascular exam: PRESENT: normal capillary refill GI/Abdominal exam: PRESENT: normal bowel sounds, soft Rectal exam: PRESENT: deferred Extremities exam: PRESENT: full ROM. ABSENT: calf tenderness, clubbing, pedal edema Neurological exam: PRESENT: alert, awake, oriented to person, oriented to place , oriented to time, oriented to situation, CN II-XII grossly intact. ABSENT: motor sensory deficit Psychiatric exam: PRESENT: appropriate affect, normal mood Skin exam: PRESENT: dry, intact, warm Results Laboratory Results: 06/12/17 05:19 06/12/17 05:19 06/08/17 05:40 Blood Blood Culture - Final NO GROWTH IN 5 DAYS 06/08/17 00:32 Blood Blood Culture - Final NO GROWTH IN 5 DAYS Impressions: Pelvis X-Ray 06/07/17 19:27 IMPRESSION: Mild cortical irregularity in the upper right femoral neck concerning for possible nondisplaced fracture. Consider MRI or CT to further assess. Femur X-Ray 06/07/17 19:28 IMPRESSION: Mild cortical irregularity in the upper right femoral neck concerning for possible nondisplaced fracture. Consider MRI or CT to further assess. Lower Extremity CT 06/07/17 21:19 IMPRESSION: There is mild cortical irregularity in the subcapital portion of the upper right femoral neck, seen best on the coronal reconstructions, this appearance remains suspicious for nondisplaced fracture. Chest X-Ray 06/08/17 00:00 IMPRESSION: No significant interval change. No acute findings. Other findings as noted above Fluoroscopy 06/08/17 00:00 IMPRESSION: Please see combined report for performance of procedure and radiologic supervision and interpretation. Hip X-Ray 06/08/17 00:00 IMPRESSION: As above. Hip/Pelvis X-Ray 06/09/17 00:00 IMPRESSION: SATISFACTORY POSTOPERATIVE RIGHT HIP.
[2017-06-13] MEDS: INSULIN LISPRO 100 UNIT/ML 3 ML VIAL SUBCUT PRN (12:51)
[2017-06-13] MEDS ORDERED: OXYCODONE-ACETAMINOPHEN 5-325 MG TABLET PO PRN (14:26)
[2017-06-13 20:18] VITALS: BP 152/75
== END 2017-06-13 21:30 | DRG 482 ==
LOC: ER 19:16 → EH 23:34 → UNDOADMIN 23:46 → EH 23:46 → 4S 06-08 00:40
PROVIDERS: ADMIT Family Medicine; ATTEND Internal Medicine
PROC: 0QS634Z Reposition Right Upper Femur with Internal Fixation Device, Percutaneous Approach (ICD-10-PCS; principal; 2017-06-08 13:00)
DX: S72.001A Fracture of unspecified part of neck of right femur, initial encounter for closed fracture (principal); E11.9 Type 2 diabetes mellitus without complications; I10 Essential (primary) hypertension; R19.7 Diarrhea, unspecified; J44.9 Chronic obstructive pulmonary disease, unspecified; E78.5 Hyperlipidemia, unspecified; K21.9 Gastro-esophageal reflux disease without esophagitis; M19.90 Unspecified osteoarthritis, unspecified site; F41.9 Anxiety disorder, unspecified; F03.90 Unspecified dementia, unspecified severity, without behavioral disturbance, psychotic disturbance, mood disturbance, and anxiety; F17.210 Nicotine dependence, cigarettes, uncomplicated; W01.0XXA Fall on same level from slipping, tripping and stumbling without subsequent striking against object, initial encounter; Y93.01 Activity, walking, marching and hiking; Y92.002 Bathroom of unspecified non-institutional (private) residence as the place of occurrence of the external cause; Z60.2 Problems related to living alone; Z85.118 Personal history of other malignant neoplasm of bronchus and lung; Z79.84 Long term (current) use of oral hypoglycemic drugs; Z91.19 Patient's noncompliance with other medical treatment and regimen
CPT/HCPCS: 01220; 36415; 71010; 72170; 80048; 80053; 82550; 82962; 83036; 85025; 87040; 87086; 87493; 93005; 93010; 99285; G8978-GP; G8979-GP; G8987-GO; G8988-GO; J0690; J0696; J1650; J1815; J2250; J2704; J3010; J3490; J7620

== ENCOUNTER → 2017-11-28 | Outpatient (CLI) | payer MEDICARE, MEDICAID ==
--- NOTE | 2017-11-29 09:29 | WOMENS IMAGING REPORT ---
EXAM DESCRIPTION: BONE DENSITY HIP/SPINE COMPLETED DATE/TIME: 11/29/2017 9:12 am REASON FOR STUDY: FRACTURE OF UNSPECIFIED PART OF NECK S72.001D FX UNSP PART OF NK OF R FEMR, SUBS FOR CLOS FX W RO M85.9 DISORDER OF BONE DENSITY AND STRUCTURE, UNSPECIFIED COMPARISON: None. TECHNIQUE: Dual-Energy X-ray Absorptiometry (DEXA) of the AP Spine and Hip. LIMITATIONS: None. FINDINGS: LUMBAR SPINE: The bone mineral density (BMD) measured from L1-L4 in the AP projection correlates with a T-score of -2.8, which is osteoporosis as defined by the World Health Organization. HIP: The bone mineral density (BMD) measured in the left hip correlates with a T-score of -2 in the femora l neck, which is osteopenia as defined by the World Health Organization. IMPRESSION: 1. LUMBAR SPINE: OSTEOPOROSIS. 2. HIP: OSTEOPENIA. COMMENT: The World Health Organization defines low BMD as follows: T-score: Normal: Greater than -1.0 Osteopenia: Between -1.0 and -2.5 Osteoporosis: Less than -2.5 without fractures Established osteoporosis: Less than -2.5 with fractures In general, you may wish to consider: Diagnosis Treatment Follow-up DEXA Normal BMD Prevention 2-3 years Osteopenia Prevention/Therapy 1-2 years Osteoporosis Therapy Yearly TECHNICAL DOCUMENTATION: JOB ID: [id number] [employer]- All Rights Reserved
== END ==
LOC: WI 12:35
PROVIDERS: ATTEND Internal Medicine
DX: M85.9 Disorder of bone density and structure, unspecified (principal)
CPT/HCPCS: 77080

== ENCOUNTER 2018-05-14 08:13 | Day surgery (SDC) | payer MEDICARE, MEDICAID ==
[~2018-05-14 08:13] MED LIST: CHONDR SU A NA/HYALUR INTRAOC KIT (SURGICARE) ONE; EPINEPHRINE INJ/PF 1 MG/1 ML AMPULE ONE; LIDOCAINE 1% INJ-PF (10 MG/ML) 30 ML SDV ONE; TOBRAMYCIN SULFATE/DEXAMETH OPH OINTMENT 3.5 GM ONE
[2018-05-14] MEDS ORDERED: MIDAZOLAM 2 MG/2 ML INJ ONE ×2 (08:18→08:42)
[2018-05-14] MEDS ORDERED: TETRACAINE HCL 0.5% OPH SOLN 0.6 ML DROPERETTE ONE (08:22)
[2018-05-14] MEDS ORDERED: KETOROLAC TROMETHAMINE 0.45% 4 DROP/0.4 ML DROPERETTE ONE (08:22)
[2018-05-14] MEDS: CYCLOPENTOLATE 0.2%/PHENYLEPHRINE 1% OPH SOLN 2 ML OD PRN ×3 (08:33→08:53)
[2018-05-14] MEDS: BESIFLOXACIN HCL 0.6% OPH SUSP 5 ML BOTTLE OD PRN ×3 (08:33→09:20)
[2018-05-14] MEDS: TROPICAMIDE 1% OPH SOLN 3 ML OD PRN ×3 (08:33→08:53)
[2018-05-14] MEDS: TETRACAINE HCL 0.5% OPH SOLN 0.6 ML DROPERETTE OD PRN ×3 (08:34→08:57)
[2018-05-14] MEDS ORDERED: KETOROLAC TROMETHAMINE 0.45% 4 DROP/0.4 ML DROPERETTE OD PRN (08:37)
[2018-05-14] MEDS ORDERED: FENTANYL CITRATE INJ/PF 100 MCG/2 ML AMPUL ONE (08:42)
== END 2018-05-14 10:06 ==
LOC: SC 08:13
PROVIDERS: ATTEND Ophthalmology
DX: H25.11 Age-related nuclear cataract, right eye (principal); J44.9 Chronic obstructive pulmonary disease, unspecified; E11.9 Type 2 diabetes mellitus without complications; M19.90 Unspecified osteoarthritis, unspecified site; I10 Essential (primary) hypertension; E78.00 Pure hypercholesterolemia, unspecified; F03.90 Unspecified dementia, unspecified severity, without behavioral disturbance, psychotic disturbance, mood disturbance, and anxiety; Z87.891 Personal history of nicotine dependence; Z79.51 Long term (current) use of inhaled steroids; Z79.4 Long term (current) use of insulin; Z85.118 Personal history of other malignant neoplasm of bronchus and lung
CPT/HCPCS: 82962; 66984; V2630; J2250; J3490 ×3; A9270; J0171; J3010; 142

== ENCOUNTER 2018-05-28 06:59 | Day surgery (SDC) | payer MEDICARE, MEDICAID ==
[~2018-05-28 06:59] MED LIST changes: -CHONDR SU A NA/HYALUR INTRAOC KIT (SURGICARE) ONE; -EPINEPHRINE INJ/PF 1 MG/1 ML AMPULE ONE; +KETOROLAC TROMETHAMINE 0.45% 4 DROP/0.4 ML DROPERETTE OS PRN; -LIDOCAINE 1% INJ-PF (10 MG/ML) 30 ML SDV ONE; -TOBRAMYCIN SULFATE/DEXAMETH OPH OINTMENT 3.5 GM ONE
[2018-05-28] MEDS ORDERED: EPINEPHRINE INJ/PF 1 MG/1 ML AMPULE ONE (07:20)
[2018-05-28] MEDS ORDERED: CHONDR SU A NA/HYALUR INTRAOC KIT (SURGICARE) ONE (07:21)
[2018-05-28] MEDS ORDERED: LIDOCAINE 1% INJ-PF (10 MG/ML) 30 ML SDV ONE (07:21)
[2018-05-28] MEDS: BESIFLOXACIN HCL 0.6% OPH SUSP 5 ML BOTTLE OS PRN ×4 (07:50→08:36)
[2018-05-28] MEDS: CYCLOPENTOLATE 0.2%/PHENYLEPHRINE 1% OPH SOLN 2 ML OS PRN ×3 (07:50→08:10)
[2018-05-28] MEDS: TROPICAMIDE 1% OPH SOLN 3 ML OS PRN ×3 (07:50→08:10)
[2018-05-28] MEDS: TETRACAINE HCL 0.5% OPH SOLN 0.6 ML DROPERETTE OS PRN ×3 (07:51→08:14)
[2018-05-28] MEDS ORDERED: MIDAZOLAM 2 MG/2 ML INJ ONE (08:00)
[2018-05-28] MEDS: TOBRAMYCIN SULFATE/DEXAMETH OPH OINTMENT 3.5 GM ONE ×2 (08:36)
== END 2018-05-28 09:20 | disposition home or self-care (01) ==
LOC: SC 06:59
PROVIDERS: ATTEND Ophthalmology
DX: H25.12 Age-related nuclear cataract, left eye (principal); Z98.41 Cataract extraction status, right eye; M19.90 Unspecified osteoarthritis, unspecified site; J44.9 Chronic obstructive pulmonary disease, unspecified; E11.9 Type 2 diabetes mellitus without complications; K21.9 Gastro-esophageal reflux disease without esophagitis; I10 Essential (primary) hypertension; E78.00 Pure hypercholesterolemia, unspecified; F03.90 Unspecified dementia, unspecified severity, without behavioral disturbance, psychotic disturbance, mood disturbance, and anxiety; Z85.118 Personal history of other malignant neoplasm of bronchus and lung; Z87.891 Personal history of nicotine dependence; Z79.51 Long term (current) use of inhaled steroids; Z79.84 Long term (current) use of oral hypoglycemic drugs; Z79.4 Long term (current) use of insulin
CPT/HCPCS: 66984; 82962; V2630; J2250; J3490 ×3; A9270; J0171; 142

== ENCOUNTER 2018-07-07 12:55 | Emergency (ER) | payer MEDICARE, MEDICAID ==
--- NOTE | 2018-07-07 14:31 | ER Document Report ---
ED General - General Mode of Arrival: Ambulatory Information source: Patient TRAVEL OUTSIDE OF THE [place] IN LAST 30 DAYS: No - General Chief Complaint: Hip Injury Stated Complaint: HIP PAIN Time Seen by Provider: 07/07/18 13:28 Notes: Patient is a 73 year old female presenting [facility] emergency department [facility] a [facility] complaining of back and left hip pain. Patient states that she fell out of bed last week and had an xray performed which showed no fractures. Patient states she is continuing to have pain and further reports not taking any medications. Patient states she has been walking with her walker and denies any bowel or urinary incontinence. (ROVERTO,PERRY) - Related Data Allergies/Adverse Reactions: peppermint [Peppermint] Allergy (Unknown, Verified 07/07/18 13:14) Past Medical History - General Information source: Patient - Social History Smoking Status: Former Smoker Chew tobacco use (# tins/day): No Frequency of alcohol use: None Drug Abuse: None Family History: Reviewed & Not Pertinent, DM, Hyperlipidemia, Hypertension Patient has suicidal ideation: No Patient has homicidal ideation: No - Past Medical History Cardiac Medical History: Reports: Hx Hypercholesterolemia, Hx Hypertension Pulmonary Medical History: Reports: Hx COPD, Hx Pneumonia Endocrine Medical History: Reports: Hx Diabetes Mellitus Type 2 Malignancy Medical History: Reports: Hx Lung Cancer - right lung GI Medical History: Reports: Hx Gastroesophageal Reflux Disease Musculoskeletal Medical History: Reports Hx Arthritis, Reports Hx Musculoskeletal Trauma Psychiatric Medical History: Reports: Hx Anxiety Traumatic Medical History: Reports: Hx Fractures Past Surgical History: Reports: Other - Status post lobectomy for the lung cancer - Immunizations Immunizations up to date: Yes Hx Diphtheria, Pertussis, Tetanus Vaccination: Yes Hx Pneumococcal Vaccination: 09/01/12 Review of Systems - Review of Systems Constitutional: No symptoms reported EENT: No symptoms reported Cardiovascular: No symptoms reported Respiratory: No symptoms reported Gastrointestinal: No symptoms reported Genitourinary: No symptoms reported Female Genitourinary: No symptoms reported Musculoskeletal: See HPI, Back pain Skin: No symptoms reported Hematologic/Lymphatic: No symptoms reported Neurological/Psychological: No symptoms reported -: Yes All other systems reviewed and negative Physical Exam - Vital signs Vitals: Temp Pulse Resp BP Pulse Ox 98.4 F 88 20 142/61 H 94 07/07/18 13:21 07/07/18 13:21 07/07/18 13:21 07/07/18 13:21 07/07/18 13:21 - Notes Notes: GENERAL: Alert, interacts well. No acute distress. HEAD: Normocephalic, atraumatic. EYES: Pupils equal, round, and reactive to light. Extraocular movements intact. ENT: Oral mucosa moist, tongue midline. NECK: Full range of motion. Supple. Trachea midline. LUNGS: Clear to auscultation bilaterally, no wheezes, rales, or rhonchi. No respiratory distress. HEART: Regular rate and rhythm. No murmurs, gallops, or rubs. ABDOMEN: Soft, non-tender. Non-distended. Bowel sounds present in all 4 quadrants. EXTREMITIES: Moves all 4 extremities spontaneously. Tender to the left greater trochanter. Logroll test negative bilaterally. No deformities. No shortening of the BLE. Right is foot externally rotated. Able to bear weight with assistance, able to ambulate 2 steps forward, 2 steps back and laterally. No edema, radial and dorsalis pedis pulses 2/4 bilaterally. No cyanosis. NEUROLOGICAL: Alert and oriented to place and person. Does not state who the president is. PSYCH: Normal affect, normal mood. SKIN: Warm, dry, normal turgor. No rashes or lesions noted. BACK: Midline bony tenderness to palpation. Slight step-off at levels L1-L2. (PERRY LAYNE) Course - Re-evaluation Re-evalutation: 07/07/18 16:57 Spoke with Jessica Antonio, nursing resident at [facility], who states the patient fell 1 week ago and received and xray report which she did not read. She was advised to send the patient to [facility] for further evaluation. She states the patient is normally able to "ambulate in her wheelchair" and pivot to use the restroom and get into bed. She reports the patient only began to complain of left hip pain today. (PERRY LAYNE) 07/07/18 17:32 Hip and lumbar spine x-rays are negative for acute process, hardware is in good position. Patient was able to stand, take a few steps with assistance, pivot and sit down again. This is her usual baseline. No indication for CT scan of the hip for occult fracture at this time as she is not having difficulty ambulating beyond her baseline and is not having significant pain at this time. Patient will be discharged back to [facility]. (FARNAZ LOW) - Vital Signs Vital signs: Temp Pulse Resp BP Pulse Ox 98.4 F 88 20 142/61 H 94 07/07/18 13:21 07/07/18 13:21 07/07/18 13:21 07/07/18 13:21 07/07/18 13:21 Discharge - Discharge Clinical Impression: Fall Qualifiers: Encounter type: initial encounter Qualified Code(s): W19.XXXA - Unspecified fall, initial encounter Condition: Stable Disposition: HOME, SELF-CARE Additional Instructions: Today your x-rays did not show any sign of fracture. The hardware from your prior fracture is in good position. She was able to stand here today and take 2 steps and then walked back to the bed with assistance. Should she continue to have pain in her hip you may wish to consider consider doing a CAT scan of her hip however today she denied any pain in her hip and nothing I did was able to reproduce pain in her hip. Referrals: ADOLFO CHAVARRIA MD [Primary Care Provider] - Follow up as needed Scribe Attestation: 07/07/18 18:44 I personally performed the services described in the documentation, reviewed and edited the documentation which was dictated to the scribe in my presence, and it accurately records my words and actions. (FARNAZ LOW) Scribe Documentation - Scribe Written by Lisandra:: Lisandra Sosa, 07/07/2018 14:39 acting as scribe for :: Jhonatan
--- NOTE | 2018-07-07 15:15 | RADIOLOGY REPORT (SQ) ---
EXAM DESCRIPTION: L SPINE WHOLE COMPLETED DATE/TIME: 07/07/2018 2:49 pm REASON FOR STUDY: fall, left hip pain, low back pain COMPARISON: June 2017 NUMBER OF VIEWS: Five views including obliques. TECHNIQUE: AP, lateral, oblique, and sacral radiographic images acquired of the lumbar spine. LIMITATIONS: None. FINDINGS: MINERALIZATION: Normal. SEGMENTATION: Normal. No transitional anatomy. ALIGNMENT: There is minimal anterolisthesis of L4 in relation to L5. VERTEBRAE: Maintained height. No fracture or worrisome bone lesion. DISCS: Preserved height. No significant osteophytes or end plate irregularity. POSTERIOR ELEMENTS: Pedicles and facets are intact. No pars defect or posterior arch defects. HARDWARE: None in the spine. PARASPINAL SOFT TISSUES: Normal. PELVIS: Intact as visualized. No fractures or worrisome bone lesions. SI joints intact. OTHER: No other significant finding. IMPRESSION: No significant vertebral compression or disc space reduction is seen. There is minimal anterolisthesis of L 4 in relation to L5. Other findings as noted above TECHNICAL DOCUMENTATION: JOB ID: [id number]- All Rights Reserved Reading location - IP/workstation name: [email or web address]
--- NOTE | 2018-07-07 15:17 | RADIOLOGY REPORT (SQ) ---
EXAM DESCRIPTION: HIP BILATERAL COMPLETED DATE/TIME: 07/07/2018 2:49 pm REASON FOR STUDY: fall, left hip pain, low back pain COMPARISON: None. NUMBER OF VIEWS: Three views TECHNIQUE: AP pelvis and additional frog-leg view of both hips. LIMITATIONS: None. FINDINGS: MINERALIZATION: Normal. HIPS: No acute fracture or dislocation. No worrisome bone lesions. Patient is status post right hip pinning with orthopedic screws being identified in position. PELVIS AND SACRUM: No acute fracture or dislocation. No worrisome bone lesions. PUBIS AND ISCHIUM: No acute fracture. LOWER LUMBAR SPINE: No significant findings as visualized. SOFT TISSUES: No findings. OTHER: Degenerative changes are identified in both hip articulations. IMPRESSION: Postsurgical changes involving the right hip as noted above. Degenerative changes are i dentified in both hip articulations. Other findings as noted above TECHNICAL DOCUMENTATION: JOB ID: [id number] [employer]- All Rights Reserved Reading location - IP/workstation name: [email or web address]
[2018-07-07 18:57] VITALS: BP 137/59
== END 2018-07-07 23:30 | disposition home or self-care (01) ==
LOC: ER 12:55
DX: S79.912A Unspecified injury of left hip, initial encounter (principal); M54.9 Dorsalgia, unspecified; W06.XXXA Fall from bed, initial encounter; W19.XXXA Unspecified fall, initial encounter; E78.00 Pure hypercholesterolemia, unspecified; I10 Essential (primary) hypertension; J44.9 Chronic obstructive pulmonary disease, unspecified; E11.9 Type 2 diabetes mellitus without complications; Z85.118 Personal history of other malignant neoplasm of bronchus and lung
CPT/HCPCS: 72110; 73522; 99284

== ENCOUNTER 2018-10-10 10:18 | Inpatient (IN) | payer MEDICARE, MEDICAID ==
[2018-10-10] MEDS ORDERED: 1/2 NORMAL SALINE 1,000 ML IV ONE (10:51)
--- NOTE | 2018-10-10 11:15 | ER Document Report ---
ED General - General Chief Complaint: Altered Mental Status Stated Complaint: ALTERED MENTAL STATUS Time Seen by Provider: 10/10/18 10:48 Notes: Patient was sent here from a local senior living where she resides due to change in her mental status with decreased cognition and decreased activity level for the past 2-3 days. I spoke with her primary care provider, Dr. gonsales, who says that he saw her in the senior living about 10 when she is normally much more alert and active than she is described as being now. Additionally, patient will not take her medications nor will she eat any food. Patient has some degree of dementia so she is not able to help much on her history. No other information was sent about the patient. TRAVEL OUTSIDE OF THE [place] IN LAST 30 DAYS: No - Related Data Allergies/Adverse Reactions: peppermint [Peppermint] Allergy (Unknown, Verified 07/07/18 13:14) Past Medical History - Social History Smoking Status: Unknown if Ever Smoked [facility] Family History: Reviewed & Not Pertinent, DM, Hyperlipidemia, Hypertension Patient has suicidal ideation: No Patient has homicidal ideation: No - Past Medical History Cardiac Medical History: Reports: Hx Hypercholesterolemia, Hx Hypertension Pulmonary Medical History: Reports: Hx COPD, Hx Pneumonia Neurological Medical History: Reports: Other - Dementia Endocrine Medical History: Reports: Hx Diabetes Mellitus Type 1, Hx Diabetes Mellitus Type 2 Malignancy Medical History: Reports: Hx Lung Cancer - right lung GI Medical History: Reports: Hx Gastroesophageal Reflux Disease Musculoskeletal Medical History: Reports Hx Arthritis, Reports Hx Musculoskeletal Trauma Psychiatric Medical History: Reports: Hx Anxiety Traumatic Medical History: Reports: Hx Fractures Past Surgical History: Reports: Hx Orthopedic Surgery - Fractured hip, June,., Other - Status post lobectomy for the lung cancer - Immunizations Immunizations up to date: Yes Hx Diphtheria, Pertussis, Tetanus Vaccination: Yes Hx Pneumococcal Vaccination: 09/01/12 Review of Systems - Review of Systems -: Yes ROS unobtainable due to patient's medical condition - Patient does not answer questions, but follows commands. Physical Exam - Vital signs Vitals: Temp Pulse Resp BP Pulse Ox 98.0 F 95 20 147/76 H 98 10/10/18 10:25 10/10/18 10:25 10/10/18 10:25 10/10/18 10:25 10/10/18 10:25 Interpretation: Normal Notes: PHYSICAL EXAMINATION: GENERAL: Well-appearing, in no acute distress. Awake and alert but does not answer but a few questions. Denies being in pain. Does follow commands when asked to squeeze the examiner's fingers, etc. HEAD: Atraumatic, normocephalic. EYES: Pupils equal round and reactive to light, extraocular movements intact. ENT: oropharynx clear without exudates. Moist mucous membranes. NECK: Normal range of motion, supple. LUNGS: Breath sounds clear and equal bilaterally. HEART: Regular rate and rhythm without murmurs. ABDOMEN: Soft, nontender. No guarding or rebound. No masses. BACK: No tenderness throughout entire back. EXTREMITIES: Normal range of motion without pain. NEUROLOGICAL: Unable to assess gait because patient cannot walk well due to recent hip fracture surgery. Does not carry on a conversation. Does seem to understand simple commands and follows them. Moves all 4 extremities in a limited manner. No facial asymmetry observed. PSYCH: Unable to assess SKIN: Warm, dry, no rashes. Course - Re-evaluation Re-evalutation: 10/10/18 11:18 Discussed patient with her primary care physician who says that her mental status today is a change for her for the last 2-3 days. He describes her normal status dementia as being moderate. 10/10/18 13:25 Patient's calcium is 12.2 so saline infusion is running and patient was given 40 mg of Lasix IV. She will be admitted for further care of her hypercalcemia. Patient's chest x-ray shows cardiomegaly and effusions and findings are consistent with congestive heart failure. Lasix has been given. Patient will be admitted to [facility]. - Vital Signs Vital signs: Temp Pulse Resp BP Pulse Ox 97.4 F 97 15 122/64 97 10/11/18 07:34 10/11/18 07:34 10/11/18 07:34 10/11/18 07:34 10/11/18 07:34 - Laboratory Result Diagrams: 10/11/18 03:49 10/11/18 03:49 Laboratory results interpreted by me: 10/10/18 10/10/18 10/10/18 10:55 10:55 10:55 WBC 11.2 H RBC 3.70 L Hct 35.8 L Plt Count 454 H Glucose 118 H Hemoglobin A1c % 9.4 H Calcium 12.2 H* Total Protein 8.3 H Urine Glucose (UA) 10/10/18 11:55 WBC RBC Hct Plt Count Glucose Hemoglobin A1c % Calcium Total Protein Urine Glucose (UA) >=500 H - Diagnostic Test Radiology reviewed: Image reviewed, Reports reviewed - Chest x-ray read by radiology as congestive heart failure. CT of the head shows chronic changes but nothing acute and no stroke. - EKG Interpretation by K[facility] EKG shows normal: Sinus rhythm Rate: Normal Rhythm: NSR Voltage: Consistant with LVH Critical Care Note - Critical Care Note Total time excluding time spent on procedures (mins): 35 Discharge - Discharge Clinical Impression: Hypercalcemia, CHF (congestive heart failure), Altered mental status Condition: Stable Disposition: ADMITTED INPATIENT Admitting Provider: [facility] Admitted: [facility]
[2018-10-10 11:31] LABS: ABSOLUTE BASOPHILS # (AUTO) 0.1 10^3/uL (0.0-0.2); ABSOLUTE EOSINOPHILS # (AUTO) 0.2 10^3/uL (0.0-0.6); ABSOLUTE LYMPHOCYTES (AUTO) 3.5 10^3/uL (0.5-4.7); ABSOLUTE MONOCYTES (AUTO) 0.9 10^3/uL (0.1-1.4); ABSOLUTE NEUT (AUTO) 6.5 10^3/uL (1.7-8.2); BASOPHILS % (AUTO) 1.2 % (0-2); EOSINOPHILS % (AUTO) 1.5 % (0-6); HEMATOCRIT 35.8 % (36.0-47.0); HEMOGLOBIN 12.3 g/dL (12.0-15.5); LYMPHOCYTES % (AUTO) 31.4 % (13-45); MEAN CORPUSCULAR HEMOGLOBIN 33.2 pg (27.0-33.4); MEAN CORPUSCULAR HGB CONC 34.3 g/dL (32.0-36.0); MEAN CORPUSCULAR VOLUME 97 fl (80-97); MONOCYTES % (AUTO) 7.9 % (3-13); PLATELET COUNT 454 10^3/uL (150-450); TOTAL CELLS COUNTED % (AUTO) 100 %; WHITE BLOOD COUNT 11.2 10^3/uL (4.0-10.5)
[2018-10-10 11:47] LABS: ALANINE AMINOTRANSFERASE 10 U/L (9-52); ALBUMIN 3.8 g/dL (3.5-5.0); ALKALINE PHOSPHATASE 98 U/L (38-126); ANION GAP 12 (5-19); ASPARTATE AMINO TRANSFERASE 15 U/L (14-36); BILIRUBIN,DIRECT 0.3 mg/dL (0.0-0.4); BILIRUBIN,TOTAL 0.5 mg/dL (0.2-1.3); BLOOD UREA NITROGEN 19 mg/dL (7-20); CARBON DIOXIDE 29 mmol/L (22-30); CHLORIDE 102 mmol/L (98-107); GLUCOSE 118 mg/dL (75-110); LIPASE 75.6 U/L (23-300); POTASSIUM 4.7 mmol/L (3.6-5.0); SODIUM 142.7 mmol/L (137-145); TOTAL PROTEIN 8.3 g/dL (6.3-8.2)
--- NOTE | 2018-10-10 11:52 | RADIOLOGY REPORT (SQ) ---
EXAM DESCRIPTION: CT HEAD WITHOUT COMPLETED DATE/TIME: 10/10/2018 11:39 am REASON FOR STUDY: Altered mental status, some dementia COMPARISON: None. TECHNIQUE: Axial images acquired through the brain without intravenous contrast. Images reviewed wi th bone, brain and subdural windows. Additional sagittal and coronal reconstructions were generated. Images stored on PACS. All CT scanners at this facility use dose modulation, iterative reconstruction, and/or weight based d osing when appropriate to reduce radiation dose to as low as reasonably achievable (ALARA). [facility]: Dose Right [facility]: CareDose [facility]: Dose Right [facility]: Teradose 4D [facility]: [employer] RADIATION DOSE: CT Rad equipment meets quality standard of care and radiation dose reduction techniq ues were employed. CTDIvol: 53.2 mGy. DLP: 1070 mGy-cm.mGy. LIMITATIONS: None. FINDINGS: VENTRICLES: Prominent. CEREBRUM: No masses. No hemorrhage. No midline shift. Areas of low density in the white matter mos t likely due to chronic micro-vascular ischemic change. No evidence for acute infarction. CEREBELLUM: No masses. No hemorrhage. No alteration of density. No evidence for acute infarction. EXTRAAXIAL SPACES: Age-related involutional change. No fluid collections. No masses. ORBITS AND GLOBE: No intra- or extraconal masses. Normal contour of globe without masses. CALVARIUM: No fracture. PARANASAL SINUSES: No fluid or mucosal thickening. SOFT TISSUES: No mass or hematoma. OTHER: No other significant finding. IMPRESSION: CHRONIC CHANGES OF ATROPHY AND MICROVASCULAR ISCHEMIA. NO ACUTE PROCESS. EVIDENCE OF ACUTE STROKE: NO. TECHNICAL DOCUMENTATION: JOB ID: [id number] Quality ID # [id number]: Final reports with documentation of one or more dose reduction techniques (e.g., Au tomated exposure control, adjustment of the mA and/or kV according to patient size, use of iterative reconstruction technique) 2010 [employer]- All Rights Reserved Reading location - IP/workstation name: [email or web address]
[2018-10-10 11:57] LABS: CALCIUM 12.2 mg/dL (8.4-10.2)
--- NOTE | 2018-10-10 12:06 | RADIOLOGY REPORT (SQ) ---
EXAM DESCRIPTION: CHEST SINGLE VIEW COMPLETED DATE/TIME: 10/10/2018 11:34 am REASON FOR STUDY: Altered mental status COMPARISON: 03/04/2016. NUMBER OF VIEWS: One view. TECHNIQUE: Single frontal radiographic view of the chest acquired. LIMITATIONS: None. FINDINGS: LUNGS AND PLEURA: Interstitial edema in the lung bases. No large effusions. MEDIASTINUM AND HILAR STRUCTURES: Stable. HEART AND VASCULATURE: Cardiac enlargement. Vascular congestion. BONES: No acute findings. HARDWARE: None in the chest. OTHER: No other significant finding. IMPRESSION: CHF. TECHNICAL DOCUMENTATION: JOB ID: [id number] [employer]- All Rights Reserved Reading location - IP/workstation name: [email or web address]
[2018-10-10 12:54] LABS: APPEARANCE,URINE SLIGHTLY-CLOUDY; BILIRUBIN,URINE NEGATIVE (NEGATIVE); COLOR,URINE YELLOW; GLUCOSE, URINE >=500 mg/dL (NEGATIVE); KETONES,URINE NEGATIVE (NEGATIVE); LEUKOCYTE ESTERASE,URINE NEGATIVE (NEGATIVE); NITRITE,URINE NEGATIVE (NEGATIVE); PROTEIN,URINE NEGATIVE (NEGATIVE); URINE SPECIFIC GRAVITY 1.023; UROBILINOGEN,URINE NEGATIVE mg/dL (<2.0)
[2018-10-10] MEDS ORDERED: FUROSEMIDE INJ/PF 40 MG/4 ML SDV IV ONE (13:19)
--- NOTE | 2018-10-10 13:41 | EKG REPORT ---
SEVERITY:- ABNORMAL ECG - SINUS RHYTHM PROBABLE LVH WITH SECONDARY REPOL ABNRM : Confirmed by: Philip Burrell MD 10-Oct-2018 13:40:22
--- NOTE | 2018-10-10 18:29 | RADIOLOGY REPORT (SQ) ---
EXAM DESCRIPTION: CT CHEST WITH COMPLETED DATE/TIME: 10/10/2018 6:18 pm REASON FOR STUDY: pneumonia ,h/o lung cancer ,hypercalcemia COMPARISON: 10/10/[address] chest study from 2014. No recent CT studies. TECHNIQUE: CT scan of the chest performed using helical scanning technique with dynamic intravenous contrast injection. Images reviewed with lung, soft tissue and bone windows. Reconstructed coronal and sagittal MPR and MIP images reviewed. All images stored on PACS. All CT scanners at this facility use dose modulation, iterative reconstruction, and/or weight based d osing when appropriate to reduce radiation dose to as low as reasonably achievable (ALARA). [facility]: Dose Right [facility]: CareDose [facility]: Dose Right [facility]: Teradose 4D [facility]: [employer] CONTRAST TYPE AND DOSE: contrast/concentration: Isovue 350.00 mg/ml; Total Contrast Delivered: 56.9 ml; Total Saline Delivered: 20.0 ml RENAL FUNCTION: Creatinine 0.82 RADIATION DOSE: CT Rad equipment meets quality standard of care and radiation dose reduction techniq ues were employed. CTDIvol: 18.6 mGy. DLP: 684 mGy-cm. . LIMITATIONS: None. FINDINGS: LUNGS AND PLEURA: Mild motion artifact. 6 cm left lower lobe mass with some cavitation. Associated with left hilar adenopathy which looks mildly confluent. HILAR AND MEDIASTINAL STRUCTURES: As above. Relatively small nodes otherwise. HEART AND VASCULAR STRUCTURES: Cardiomegaly without pericardial effusion. Attenuated branches of lef t lower lobe pulmonary artery distally related to the mass. No leola embolus detected, however. No aortic aneurysm or dissection. Heavy coronary calcification. HARDWARE: None in the chest. UPPER ABDOMEN: Chronic bilateral adrenal masses, presumed adenomas. THYROID AND OTHER SOFT TISSUES: Normal. BONES: No gross fracture or bone lesion. OTHER: No other significant finding. IMPRESSION: 1. Left lower lobe mass, presumably related to malignancy given the history of lung canc er. Associated left hilar adenopathy. TECHNICAL DOCUMENTATION: JOB ID: [id number] Quality ID # [id number]: Final reports with documentation of one or more dose reduction techniques (e.g., Au tomated exposure control, adjustment of the mA and/or kV according to patient size, use of iterative reconstruction technique) 2010 [employer]- All Rights Reserved Reading location - IP/workstation name: [email or web address]
[2018-10-10] MEDS: NORMAL SALINE 1000 ML 1,000 ML IV PRN (19:04)
[2018-10-10] MEDS: NORMAL SALINE 250 ML with FUROSEMIDE 250 MG IV PRN ×2 (19:04)
--- NOTE | 2018-10-10 19:05 | RADIOLOGY REPORT (SQ) ---
EXAM DESCRIPTION: MRI HEAD WITHOUT COMPLETED DATE/TIME: 10/10/2018 6:49 pm REASON FOR STUDY: asphasia ,hypercalcemia ,h/o lung cancer ,tobacco COMPARISON: CT brain 10/10/2018. TECHNIQUE: Multiplanar imaging includes non-contrasted T1, T2, FLAIR, and diffusion with ADC map seq uences. Images stored on PACS. LIMITATIONS: Several of the sequences are markedly limited by motion artifact. FINDINGS: ANATOMY: No anomalies. Normal vascular flow voids. Pituitary fossa normal. CSF SPACES: Atrophy induced prominence of ventricles and CSF spaces. CEREBRUM: High signal intensity lesions scattered throughout the white matter on FLAIR imaging with d istribution suggesting micro-vascular ischemic changes. No evidence of hemorrhage, mass, or extraaxi al fluid collection. POSTERIOR FOSSA: No signal alteration. No hemorrhage. No edema, masses or mass effect. Internal fady tory canals, cerebello-pontine angles, mastoids normal. DIFFUSION IMAGING: Negative for acute or sub-acute infarction. ORBITS: No masses. Globes normal. PARANASAL SINUSES: No fluid levels. Mucosa normal. OTHER: No other significant finding. IMPRESSION: 1. Limited study. 2. Chronic changes. EVIDENCE OF ACUTE STROKE: NO. TECHNICAL DOCUMENTATION: JOB ID: [id number] [employer].- All Rights Reserved Reading location - IP/workstation name: [email or web address]
[2018-10-10] MEDS ORDERED: PAMIDRONATE DISODIUM INJ 30 MG/10 ML VIAL IV ONE (19:59)
--- NOTE | 2018-10-10 19:59 | PDOC H&P ---
History of Present Illness Admission Date/PCP: 10/10/18 13:29 ADOLFO CHAVARRIA MD History of Present Illness: TRENTON BEARD is a 73 year old female,She is a resident of the senior care at [facility], I received a call this morning from the senior care staff that patient was not eating, was not talking, was not taking her medication, she is a diabetic, this is out of character for her I advised the senior care staff to refer her to the emergency room for evaluation. In the emergency room she was evaluated, she was found to have hypercalcemia, chest x-ray was done that suggest CHF, she had a history of lung cancer, remote history of lobectomy , but patient continue to abuse tobacco. The constellation of hypercalcemia, encephalopathy, the intact PTH was low normal or this suggests to me that this probably malignancy, because of my suspicion for lung cancer I did not believe the chest x-ray finding that this was CHF, her presentation was not consistent with CHF, she presented with encephalopathy pulmonary saw on the floor she would not answer questions, I requested for CT of the chest with contrast, MRI of the brain with contrast, CT of the chest with contrast demonstrated a left lower lobe mass, 6 cm in size.MRI brain was a poor study because of motion artifact, the study was terminated. Past Medical History Cardiac Medical History: Reports: Hyperlipidema, Hypertension Pulmonary Medical History: Reports: Chronic Obstructive Pulmonary Disease (COPD) , Pneumonia Neurological Medical History: Reports: Other - Dementia Endocrine Medical History: Reports: Diabetes Mellitus Type 2 Malignancy Medical History: Reports: Lung Cancer - right lung GI Medical History: Reports: Gastroesophageal Reflux Disease Musculoskeltal Medical History: Reports: Arthritis Past Surgical History Past Surgical History: Reports: Orthopedic Surgery - Fractured hip, June,. , Other - Status post lobectomy for the lung cancer Social History Lives with: Senior Living Smoking Status: Unknown if Ever Smoked Frequency of Alcohol Use: None Hx Recreational Drug Use: No Drugs: None Hx Prescription Drug Abuse: No - Advance Directive Resuscitation Status: Full Code Family History Family History: Reviewed & Not Pertinent, DM, Hyperlipidemia, Hypertension Parental Family History Reviewed: Yes Children Family History Reviewed: Yes Sibling(s) Family History Reviewed.: Yes Medication/Allergy Home Medications: Acetaminophen [Tylenol 325 mg Tablet] 650 mg PO Q4HP PRN 10/10/18 Calcium Carbonate/Vitamin D3 [Oyster Shell 500-Vit D3 200 Tb] 1 tab PO DAILY 08/19 Difluprednate [Durezol] 1 drop OU QID 10/10/18 Empagliflozin [Jardiance] 25 mg PO DAILY 10/10/18 Glipizide [Glucotrol 10 mg Tablet] 10 mg PO BID 10/10/18 Insulin Glargine,Hum.rec.anlog [Lantus Insulin 100 Unit/1 ml 10 ml] 40 units SQ QHS 10/10/18 Insulin Lispro [Humalog Insulin (Lispro) 100 unit/mL] 0 units SQ ACHS 10/10/18 Ipratropium/Albuterol Sulfate [Duoneb 3 ml Ampul] 1 vial NEB Q6HP PRN 10/10/18 Metformin HCl [Glucophage] 1,000 mg PO BID 10/10/18 Allergies/Adverse Reactions: peppermint [Peppermint] Allergy (Unknown, Verified 07/07/18 13:14) Review of Systems ROS unobtainable: Due to mental status Physical Exam Vital Signs: Temp Pulse Resp BP Pulse Ox 98.4 F 85 24 H 140/56 H 99 10/10/18 14:55 10/10/18 15:02 10/10/18 14:55 10/10/18 14:55 10/10/18 14:55 Intake & Output 10/09/18 10/10/18 10/11/18 06:59 06:59 06:59 Intake Total 1000 Output Total 900 Balance 100 General appearance: PRESENT: mild distress Eye exam: PRESENT: PERRLA Respiratory exam: PRESENT: rhonchi Cardiovascular exam: PRESENT: +S1, +S2 GI/Abdominal exam: PRESENT: soft Neurological exam: PRESENT: alert Results Laboratory Results: 10/10/18 13:35 PTH Intact 12.8 Impressions: Chest CT 10/10/18 00:00 IMPRESSION: 1. Left lower lobe mass, presumably related to malignancy given the history of lung cancer. Associated left hilar adenopathy. Head MRI 10/10/18 00:00 IMPRESSION: 1. Limited study. 2. Chronic changes. EVIDENCE OF ACUTE STROKE: NO. Chest X-Ray 10/10/18 11:00 IMPRESSION: CHF. Head CT 10/10/18 11:08 IMPRESSION: CHRONIC CHANGES OF ATROPHY AND MICROVASCULAR ISCHEMIA. NO ACUTE PROCESS. EVIDENCE OF ACUTE STROKE: NO. Assessment & Plan - Diagnosis (1) Hypercalcemia of malignancy Is this a current diagnosis for this admission?: Yes Plan: She has hypercalcemia of malignancy, she will be given pamidronate 90 mg IV normal saline with Lasix (2) Cavitating mass in left lower lung lobe Is this a current diagnosis for this admission?: Yes Plan: She we need CT-guided needle biopsy of the mass to confirm cancer (3) Metabolic encephalopathy Is this a current diagnosis for this admission?: Yes (4) Type 2 diabetes mellitus Qualifiers: Diabetes mellitus group home insulin use: with group home use Diabetes mellitus complication status: with neurologic complications Diabetes mellitus complication detail: with polyneuropathy Qualified Code(s): E11.42 - Type 2 diabetes mellitus with diabetic polyneuropathy; Z79.4 - MCC (current) use of insulin; Z79.4 - MCC (current) use of insulin; Z79.4 - MCC ( current) use of insulin; Z79.4 - MCC (current) use of insulin Is this a current diagnosis for this admission?: Yes
[2018-10-10] MEDS ORDERED: DEXTROSE 50%-WATER 25 GM/50 ML DISP.SYRIN IV PRN ×2 (20:10)
[2018-10-10] MEDS ORDERED: DEXTROSE 40% GEL 15 GM TUBE PO PRN ×2 (20:10)
[2018-10-10] MEDS ORDERED: GLUCAGON,HUMAN RECOMB 1 MG INJ IM PRN (20:10)
[2018-10-10] MEDS ORDERED: PAMIDRONATE DISODIUM 90 MG in NORMAL SALINE 1000 ML 1,000 ML IV ONE (21:00)
[2018-10-10 22:22] LABS: LIPASE 42.5 U/L (23-300); PHOSPHORUS 3.1 mg/dL (2.5-4.5)
[2018-10-10 22:31] LABS: APPEARANCE,URINE CLEAR; BILIRUBIN,URINE NEGATIVE (NEGATIVE); COLOR,URINE COLORLESS; GLUCOSE, URINE >=500 mg/dL (NEGATIVE); KETONES,URINE TRACE mg/dL (NEGATIVE); LEUKOCYTE ESTERASE,URINE NEGATIVE (NEGATIVE); NITRITE,URINE NEGATIVE (NEGATIVE); PROTEIN,URINE NEGATIVE (NEGATIVE); URINE SPECIFIC GRAVITY 1.024; UROBILINOGEN,URINE NEGATIVE mg/dL (<2.0)
[2018-10-10 22:36] LABS: CREATINE KINASE MB 0.62 ng/mL (<4.55); TROPONIN I < 0.012 ng/mL
[2018-10-10 23:00] LABS: URINE AMPHETAMINES SCREEN NEGATIVE; URINE BARBITURATES SCREEN NEGATIVE; URINE BENZODIAZEPINES SCREEN NEGATIVE; URINE COCAINE SCREEN NEGATIVE; URINE MARIJUANA (THC) SCREEN NEGATIVE; URINE METHADONE SCREEN NEGATIVE; URINE PHENCYCLIDINE SCREEN NEGATIVE
[2018-10-11] MEDS: NORMAL SALINE 1000 ML 1,000 ML IV PRN ×3 (03:23→20:28)
[2018-10-11 03:58] LABS: ABSOLUTE BASOPHILS # (AUTO) 0.2 10^3/uL (0.0-0.2); ABSOLUTE EOSINOPHILS # (AUTO) 0.1 10^3/uL (0.0-0.6); ABSOLUTE MONOCYTES (AUTO) 1.3 10^3/uL (0.1-1.4); ABSOLUTE NEUT (AUTO) 8.2 10^3/uL (1.7-8.2); BASOPHILS % (AUTO) 1.3 % (0-2); EOSINOPHILS % (AUTO) 0.8 % (0-6); HEMOGLOBIN 11.4 g/dL (12.0-15.5); MEAN CORPUSCULAR HEMOGLOBIN 31.9 pg (27.0-33.4); MEAN CORPUSCULAR HGB CONC 33.5 g/dL (32.0-36.0); MEAN CORPUSCULAR VOLUME 95 fl (80-97); MONOCYTES % (AUTO) 9.3 % (3-13); PLATELET COUNT 411 10^3/uL (150-450); RED BLOOD COUNT 3.57 10^6/uL (3.72-5.28); RED CELL DISTRIBUTION WIDTH 13.1 % (11.5-14.0); SEGMENTED NEUTROPHILS % (AUTO) 59.6 % (42-78); TOTAL CELLS COUNTED % (AUTO) 100 %; WHITE BLOOD COUNT 13.8 10^3/uL (4.0-10.5)
[2018-10-11 04:17] LABS: INTERNATIONAL RATION (INR) 1.02; PROTHROMBIN TIME 13.9 SEC (11.4-15.4)
[2018-10-11 04:23] LABS: ALANINE AMINOTRANSFERASE 11 U/L (9-52); ALBUMIN 3.6 g/dL (3.5-5.0); ALKALINE PHOSPHATASE 87 U/L (38-126); ANION GAP 16 (5-19); ASPARTATE AMINO TRANSFERASE 16 U/L (14-36); BILIRUBIN,DIRECT 0.4 mg/dL (0.0-0.4); BILIRUBIN,TOTAL 0.6 mg/dL (0.2-1.3); BLOOD UREA NITROGEN 14 mg/dL (7-20); CARBON DIOXIDE 20 mmol/L (22-30); CHLORIDE 105 mmol/L (98-107); GLUCOSE 125 mg/dL (75-110); POTASSIUM 4.2 mmol/L (3.6-5.0); SODIUM 140.8 mmol/L (137-145); TOTAL PROTEIN 7.7 g/dL (6.3-8.2); TRIGLYCERIDES 121 mg/dL (<150)
[2018-10-11 04:34] LABS: DIRECT LDL 103 mg/dL (<100)
[2018-10-11 04:37] LABS: CREATINE KINASE MB 0.68 ng/mL (<4.55)
[2018-10-11 04:41] LABS: TROPONIN I < 0.012 ng/mL
[2018-10-11] MEDS: ENOXAPARIN SODIUM INJ 40 MG/0.4 ML DISP.SYRIN SUBCUT SCH (10:54)
[2018-10-11 11:31] LABS: CREATINE KINASE MB 0.75 ng/mL (<4.55); TROPONIN I < 0.012 ng/mL
[2018-10-11] MEDS: INSULIN LISPRO 100 UNIT/ML 3 ML VIAL SUBCUT PRN ×3 (13:16→22:56)
[2018-10-11] MEDS ORDERED: IPRATROPIUM/ALBUTEROL 0.5-2.5 MG/3 ML AMPUL NEB PRN (15:54)
--- NOTE | 2018-10-11 15:54 | PDOC PROGRESS REPORT ---
Subjective Progress Note for:: 10/11/18 Subjective:: Patient alertness is improving but continue to demonstrate disorientation. P.O intake remain a challenge. Daughter at bedside did demonstrate understating of her mother's situation and in agreement with care plan including lung mass biopsy on 10/16/18. No difficulty with breathing. No reported fever or vomiting. Reason For Visit: HYPERCALCEMIA OF MALIGNANCY, LEFT LOWER LOBE MASS, Physical Exam Vital Signs: Temp Pulse Resp BP Pulse Ox 98.4 F 97 22 H 140/62 H 98 10/11/18 11:21 10/11/18 14:00 10/11/18 11:21 10/11/18 11:21 10/11/18 11:21 Intake & Output 10/10/18 10/11/18 10/12/18 06:59 06:59 06:59 Intake Total 1997 1518 Output Total 1825 600 Balance 173 918 Weight 77.1 kg General appearance: PRESENT: no acute distress, obese Head exam: PRESENT: atraumatic, normocephalic Eye exam: PRESENT: EOMI, PERRLA. ABSENT: scleral icterus Ear exam: PRESENT: normal external ear exam Mouth exam: PRESENT: moist Respiratory exam: PRESENT: clear to auscultation sarah Cardiovascular exam: PRESENT: RRR. ABSENT: diastolic murmur, rubs, systolic murmur Vascular exam: ABSENT: pallor GI/Abdominal exam: PRESENT: normal bowel sounds, soft. ABSENT: distended, guarding, mass, organolmegaly, rebound, tenderness Extremities exam: ABSENT: pedal edema Musculoskeletal exam: PRESENT: deformity - related to multiple joints involvement with arthritis. Neurological exam: PRESENT: alert - and appropriate in simple responses, awake. ABSENT: oriented to person, oriented to place, oriented to time, oriented to situation Psychiatric exam: PRESENT: appropriate affect, normal mood. ABSENT: homicidal ideation, suicidal ideation Skin exam: PRESENT: dry, warm Results Laboratory Results: 10/11/18 03:49 10/11/18 03:49 10/10/18 10/10/18 10/10/18 21:50 21:50 21:50 WBC RBC Hgb Hct MCV MCH MCHC RDW Plt Count Seg Neutrophils % Lymphocytes % Monocytes % Eosinophils % Basophils % Absolute Neutrophils Absolute Lymphocytes Absolute Monocytes Absolute Eosinophils Absolute Basophils Sodium Potassium Chloride Carbon Dioxide Anion Gap BUN Creatinine Est GFR ( Amer) Est GFR (Non-Af Amer) Glucose Calcium Phosphorus 3.1 Magnesium 1.9 Total Bilirubin AST ALT Alkaline Phosphatase Ammonia < 8.7 L Total Protein Albumin Triglycerides Cholesterol LDL Cholesterol Direct VLDL Cholesterol HDL Cholesterol Amylase 70 Lipase 42.5 TSH 3.32 Urine Color Urine Appearance Urine pH Ur Specific [place] Urine Protein Urine Glucose (UA) Urine Ketones Urine Blood Urine Nitrite Ur Leukocyte Esterase Urine WBC (Auto) Urine RBC (Auto) 10/10/18 10/11/18 10/11/18 22:15 03:49 03:49 WBC 13.8 H RBC 3.57 L Hgb 11.4 L Hct 34.0 L MCV 95 MCH 31.9 MCHC 33.5 RDW 13.1 Plt Count 411 Seg Neutrophils % 59.6 Lymphocytes % 29.0 Monocytes % 9.3 Eosinophils % 0.8 Basophils % 1.3 Absolute Neutrophils 8.2 Absolute Lymphocytes 4.0 Absolute Monocytes 1.3 Absolute Eosinophils 0.1 Absolute Basophils 0.2 Sodium 140.8 Potassium 4.2 Chloride 105 Carbon Dioxide 20 L Anion Gap 16 BUN 14 Creatinine 0.73 Est GFR ( Amer) > 60 Est GFR (Non-Af Amer) > 60 Glucose 125 H Calcium 11.0 H Phosphorus Magnesium Total Bilirubin 0.6 AST 16 ALT 11 Alkaline Phosphatase 87 Ammonia Total Protein 7.7 Albumin 3.6 Triglycerides 121 Cholesterol 156.70 LDL Cholesterol Direct 103 H VLDL Cholesterol 24.0 HDL Cholesterol 38 L Amylase Lipase TSH Urine Color COLORLESS Urine Appearance CLEAR Urine pH 5.0 Ur Specific [place] 1.024 Urine Protein NEGATIVE Urine Glucose (UA) >=500 H Urine Ketones TRACE H Urine Blood NEGATIVE Urine Nitrite NEGATIVE Ur Leukocyte Esterase NEGATIVE Urine WBC (Auto) 0 Urine RBC (Auto) 1 10/10/18 10/10/18 10/10/18 21:50 21:50 21:50 Creatine Kinase 32 CK-MB (CK-2) 0.62 Troponin I < 0.012 NT-Pro-B Natriuret Pep 280 10/11/18 10/11/18 10/11/18 03:49 03:49 10:07 Creatine Kinase 48 46 CK-MB (CK-2) 0.68 Troponin I < 0.012 NT-Pro-B Natriuret Pep 10/11/18 10:07 Creatine Kinase CK-MB (CK-2) 0.75 Troponin I < 0.012 NT-Pro-B Natriuret Pep Impressions: Chest CT 10/10/18 00:00 IMPRESSION: 1. Left lower lobe mass, presumably related to malignancy given the history of lung cancer. Associated left hilar adenopathy. Head MRI 10/10/18 00:00 IMPRESSION: 1. Limited study. 2. Chronic changes. EVIDENCE OF ACUTE STROKE: NO. Chest X-Ray 10/10/18 11:00 IMPRESSION: CHF. Head CT 10/10/18 11:08 IMPRESSION: CHRONIC CHANGES OF ATROPHY AND MICROVASCULAR ISCHEMIA. NO ACUTE PROCESS. EVIDENCE OF ACUTE STROKE: NO. Assessment & Plan - Diagnosis (1) Altered mental status Qualifiers: Altered mental status type: unspecified Qualified Code(s): R41.82 - Altered mental status, unspecified Is this a current diagnosis for this admission?: Yes Plan: Continue treatment for hypercalcemia to improve her mental status. (2) Hypercalcemia of malignancy Is this a current diagnosis for this admission?: Yes Plan: Continue IV Pamidronate, furosemide and normal saline infusion therapy. Obtain BMP in AM. (3) Cavitating mass in left lower lung lobe Is this a current diagnosis for this admission?: Yes Plan: Follow up on biopsy findings. Continue supportive care. There is continue concern for lung cancer in view of her presentation and radiographic findings. (4) Type 2 diabetes mellitus Qualifiers: Diabetes mellitus supervisor intermediates insulin use: with supervisor intermediates use Diabetes mellitus complication status: with neurologic complications Diabetes mellitus complication detail: with polyneuropathy Qualified Code(s): E11.42 - Type 2 diabetes mellitus with diabetic polyneuropathy; Z79.4 - bed bug exterminator (current) use of insulin; Z79.4 - bed bug exterminator (current) use of insulin; Z79.4 - skilled nursing ( current) use of insulin; Z79.4 - skilled nursing (current) use of insulin Is this a current diagnosis for this admission?: Yes Plan: Continue current medication and dietary management. - Time Time Spent with patient: 25-34 minutes Medications reviewed and adjusted accordingly: Yes Anticipated discharge: SNF Within: Other - Inpatient Certification Based on my medical assessment, after consideration of the patient's comorbidities, presenting symptoms, or acuity I expect that the services needed warrant INPATIENT care.: Yes I certify that my determination is in accordance with my understanding of Medicare's requirements for reasonable and necessary INPATIENT services [42 CFR 412.3e].: Yes Medical Necessity: Need Close Monitoring Due to Risk of Patient Decompensation, Need For IV Fluids, Need For Continuous Telemetry Monitoring, Risk of Complication if Not Cared For in Hospital Post Hospital Care: D/C or Transfer Summary - Plan Summary Plan Summary: Continue all current medication management. Follow up on lab findings in AM. I had extensive discussion with daughter at bedside regarding care plan and she is in agreement.
[2018-10-11] MEDS: ACETAMINOPHEN 325 MG TABLET PO PRN ×2 (17:27→23:37)
[2018-10-11] MEDS ORDERED: (PENDING PHARMACY ID) (Difluprednate [Durezol] 1 DROP) OU SCH (18:00)
[2018-10-11] MEDS: NORMAL SALINE 250 ML with FUROSEMIDE 250 MG IV PRN ×2 (23:41)
[2018-10-12] MEDS: NORMAL SALINE 1000 ML 1,000 ML IV PRN ×3 (04:57→22:01)
[2018-10-12 05:20] LABS: ABSOLUTE BASOPHILS # (AUTO) 0.1 10^3/uL (0.0-0.2); ABSOLUTE MONOCYTES (AUTO) 0.6 10^3/uL (0.1-1.4); ABSOLUTE NEUT (AUTO) 5.9 10^3/uL (1.7-8.2); EOSINOPHILS % (AUTO) 0.1 % (0-6); HEMATOCRIT 32.3 % (36.0-47.0); HEMOGLOBIN 10.8 g/dL (12.0-15.5); LYMPHOCYTES % (AUTO) 13.5 % (13-45); MEAN CORPUSCULAR HEMOGLOBIN 31.8 pg (27.0-33.4); MEAN CORPUSCULAR HGB CONC 33.3 g/dL (32.0-36.0); MEAN CORPUSCULAR VOLUME 96 fl (80-97); MONOCYTES % (AUTO) 8.2 % (3-13); PLATELET COUNT 375 10^3/uL (150-450); RED BLOOD COUNT 3.38 10^6/uL (3.72-5.28); SEGMENTED NEUTROPHILS % (AUTO) 77.2 % (42-78); TOTAL CELLS COUNTED % (AUTO) 100 %; WHITE BLOOD COUNT 7.7 10^3/uL (4.0-10.5)
[2018-10-12 05:22] LABS: INTERNATIONAL RATION (INR) 1.08; PROTHROMBIN TIME 14.6 SEC (11.4-15.4)
[2018-10-12 05:40] LABS: ALANINE AMINOTRANSFERASE 16 U/L (9-52); ALBUMIN 3.2 g/dL (3.5-5.0); ALKALINE PHOSPHATASE 85 U/L (38-126); ANION GAP 16 (5-19); ASPARTATE AMINO TRANSFERASE 22 U/L (14-36); BILIRUBIN,DIRECT 0.3 mg/dL (0.0-0.4); BILIRUBIN,TOTAL 0.4 mg/dL (0.2-1.3); BLOOD UREA NITROGEN 10 mg/dL (7-20); CALCIUM 9.7 mg/dL (8.4-10.2); CARBON DIOXIDE 21 mmol/L (22-30); CHLORIDE 103 mmol/L (98-107); GLUCOSE 143 mg/dL (75-110); POTASSIUM 3.8 mmol/L (3.6-5.0); SODIUM 139.6 mmol/L (137-145)
[2018-10-12] MEDS: ENOXAPARIN SODIUM INJ 40 MG/0.4 ML DISP.SYRIN SUBCUT SCH (10:49)
[2018-10-12] MEDS: INSULIN LISPRO 100 UNIT/ML 3 ML VIAL SUBCUT PRN (16:48)
--- NOTE | 2018-10-12 17:14 | PDOC PROGRESS REPORT ---
Subjective Progress Note for:: 10/12/18 Subjective:: Patient is more lucid today but still demonstrate baseline dementia. Oral intake is better so far today. No difficulty with breathing. Thee was reported episode of elevated temperature since last clinical evaluation. Reason For Visit: HYPERCALCEMIA OF MALIGNANCY, LEFT LOWER LOBE MASS, Physical Exam Vital Signs: Temp Pulse Resp BP Pulse Ox 99.3 F 100 24 H 103/44 L 94 10/12/18 16:27 10/12/18 16:27 10/12/18 16:27 10/12/18 16:27 10/12/18 16:27 Intake & Output 10/11/18 10/12/18 10/13/18 06:59 06:59 06:59 Intake Total 1997 5430 1000 Output Total 1825 2575 750 Balance 173 2855 250 Weight 77.1 kg 80.1 kg Physical Exam: General appearance: PRESENT: no acute distress, obese Head exam: PRESENT: atraumatic, normocephalic Eye exam: PRESENT: EOMI, PERRLA. ABSENT: scleral icterus Ear exam: PRESENT: normal external ear exam Mouth exam: PRESENT: moist Respiratory exam: PRESENT: clear to auscultation sarah Cardiovascular exam: PRESENT: RRR. ABSENT: diastolic murmur, rubs, systolic murmur Vascular exam: ABSENT: pallor GI/Abdominal exam: PRESENT: normal bowel sounds, soft. ABSENT: distended, guarding, mass, organomegaly, rebound, tenderness Extremities exam: ABSENT: pedal edema Musculoskeletal exam: PRESENT: deformity - related to multiple joints involvement with arthritis. Neurological exam: PRESENT: alert - and appropriate in simple responses, awake. ABSENT: oriented to person, oriented to place, oriented to time, oriented to situation Psychiatric exam: PRESENT: appropriate affect, normal mood. ABSENT: homicidal ideation, suicidal ideation Skin exam: PRESENT: dry, warm Results Laboratory Results: 10/12/18 04:51 10/12/18 04:51 10/12/18 10/12/18 04:51 04:51 WBC 7.7 RBC 3.38 L Hgb 10.8 L Hct 32.3 L MCV 96 MCH 31.8 MCHC 33.3 RDW 13.0 Plt Count 375 Seg Neutrophils % 77.2 Lymphocytes % 13.5 Monocytes % 8.2 Eosinophils % 0.1 Basophils % 1.0 Absolute Neutrophils 5.9 Absolute Lymphocytes 1.0 Absolute Monocytes 0.6 Absolute Eosinophils 0.0 Absolute Basophils 0.1 Sodium 139.6 Potassium 3.8 Chloride 103 Carbon Dioxide 21 L Anion Gap 16 BUN 10 Creatinine 0.82 Est GFR ( Amer) > 60 Est GFR (Non-Af Amer) > 60 Glucose 143 H Calcium 9.7 Total Bilirubin 0.4 AST 22 ALT 16 Alkaline Phosphatase 85 Total Protein 7.0 Albumin 3.2 L 10/10/18 10/10/18 10/10/18 21:50 21:50 21:50 Creatine Kinase 32 CK-MB (CK-2) 0.62 Troponin I < 0.012 NT-Pro-B Natriuret Pep 280 10/11/18 10/11/18 10/11/18 03:49 03:49 10:07 Creatine Kinase 48 46 CK-MB (CK-2) 0.68 Troponin I < 0.012 NT-Pro-B Natriuret Pep 10/11/18 10:07 Creatine Kinase CK-MB (CK-2) 0.75 Troponin I < 0.012 NT-Pro-B Natriuret Pep Impressions: Chest CT 10/10/18 00:00 IMPRESSION: 1. Left lower lobe mass, presumably related to malignancy given the history of lung cancer. Associated left hilar adenopathy. Head MRI 10/10/18 00:00 IMPRESSION: 1. Limited study. 2. Chronic changes. EVIDENCE OF ACUTE STROKE: NO. Chest X-Ray 10/10/18 11:00 IMPRESSION: CHF. Head CT 10/10/18 11:08 IMPRESSION: CHRONIC CHANGES OF ATROPHY AND MICROVASCULAR ISCHEMIA. NO ACUTE PROCESS. EVIDENCE OF ACUTE STROKE: NO. Assessment & Plan - Diagnosis (1) Altered mental status Qualifiers: Altered mental status type: unspecified Qualified Code(s): R41.82 - Altered mental status, unspecified Is this a current diagnosis for this admission?: Yes (2) Hypercalcemia of malignancy Is this a current diagnosis for this admission?: Yes (3) Cavitating mass in left lower lung lobe Is this a current diagnosis for this admission?: Yes (4) Type 2 diabetes mellitus Qualifiers: Diabetes mellitus termite control representative insulin use: with termite control representative use Diabetes mellitus complication status: with neurologic complications Diabetes mellitus complication detail: with polyneuropathy Qualified Code(s): E11.42 - Type 2 diabetes mellitus with diabetic polyneuropathy; Z79.4 - manager intermediate (current) use of insulin; Z79.4 - intermediate (current) use of insulin; Z79.4 - manager intermediate ( current) use of insulin; Z79.4 - intermediate (current) use of insulin Is this a current diagnosis for this admission?: Yes - Time Time Spent with patient: 25-34 minutes Medications reviewed and adjusted accordingly: Yes Anticipated discharge: SNF Within: Other - Inpatient Certification Based on my medical assessment, after consideration of the patient's comorbidities, presenting symptoms, or acuity I expect that the services needed warrant INPATIENT care.: Yes I certify that my determination is in accordance with my understanding of Medicare's requirements for reasonable and necessary INPATIENT services [42 CFR 412.3e].: Yes Medical Necessity: Need Close Monitoring Due to Risk of Patient Decompensation, Need For IV Fluids, Need For Continuous Telemetry Monitoring, Risk of Complication if Not Cared For in Hospital Post Hospital Care: D/C or Transfer Summary - Plan Summary Plan Summary: Continue IV fluid support. D/C IV Furosemide infusion. Obtain BMP in am.
[2018-10-13 05:36] LABS: HEMOGLOBIN 9.6 g/dL (12.0-15.5); MEAN CORPUSCULAR HEMOGLOBIN 31.6 pg (27.0-33.4); MEAN CORPUSCULAR HGB CONC 33.1 g/dL (32.0-36.0); MEAN CORPUSCULAR VOLUME 96 fl (80-97); PLATELET COUNT 324 10^3/uL (150-450); RED BLOOD COUNT 3.04 10^6/uL (3.72-5.28); WHITE BLOOD COUNT 9.6 10^3/uL (4.0-10.5)
[2018-10-13 05:49] LABS: INTERNATIONAL RATION (INR) 1.07; PROTHROMBIN TIME 14.4 SEC (11.4-15.4)
[2018-10-13 06:25] LABS: ALANINE AMINOTRANSFERASE 15 U/L (9-52); ALBUMIN 2.8 g/dL (3.5-5.0); ALKALINE PHOSPHATASE 72 U/L (38-126); ANION GAP 15 (5-19); ASPARTATE AMINO TRANSFERASE 27 U/L (14-36); BILIRUBIN,DIRECT 0.3 mg/dL (0.0-0.4); BILIRUBIN,TOTAL 0.3 mg/dL (0.2-1.3); CALCIUM 8.2 mg/dL (8.4-10.2); CARBON DIOXIDE 19 mmol/L (22-30); CHLORIDE 105 mmol/L (98-107); GLUCOSE 111 mg/dL (75-110); POTASSIUM 3.6 mmol/L (3.6-5.0); SODIUM 139.1 mmol/L (137-145); TOTAL PROTEIN 5.9 g/dL (6.3-8.2)
[2018-10-13 06:40] LABS: ABSOLUTE MONOCYTES # (MANUAL) 0.9 10^3/uL (0.1-1.4); ABSOLUTE NEUTROPHILS# (MANUAL) 5.8 10^3/uL (1.7-8.2); BASOPHILS % (MANUAL) 0 % (0-2); EOSINOPHILS % (MANUAL) 0 % (0-6); LYMPHOCYTES % (MANUAL) 31 % (13-45); MONOCYTES % (MANUAL) 9 % (3-13); SEGMENTED NEUTROPHILS % (MAN) 60 % (42-78); TOTAL CELLS COUNTED 100
[2018-10-13 06:41] LABS: BLOOD UREA NITROGEN 6 mg/dL (7-20)
[2018-10-13 06:42] LABS: PLATELET COMMENT ADEQUATE; POIKILOCYTOSIS SLIGHT; ROULEAUX SLIGHT; SCHISTOCYTES SLIGHT; TOXIC GRANULATION 1+
[2018-10-13] MEDS: NORMAL SALINE 1000 ML 1,000 ML IV PRN ×2 (06:42→23:15)
[2018-10-13] MEDS: ENOXAPARIN SODIUM INJ 40 MG/0.4 ML DISP.SYRIN SUBCUT SCH (12:13)
--- NOTE | 2018-10-13 19:37 | PDOC PROGRESS REPORT ---
Subjective Progress Note for:: 10/13/18 Subjective:: Patient was seen by the bedside,, she was admitted for the management of hypercalcemia of malignancy in the setting of left lower lobe mass, she is very confused, the hypercalcemia is corrected, despite the normalization of serum calcium, patient remained confused she has underlining dementia. CT-guided needle biopsy of the mass was ordered but the radiologist is suggesting that patient be seen by pulmonary for bronchoscopy. She is a very poor candidate for chemotherapy, surgery or radiation therapy because of underlining dementia I spoke to the mobile device engineer regarding her case, there is associated risk of pneumothorax and mechanical vent support post bronchoscopy, need to speak to family about comfort care for the patientor be referred to hospice because even if a diagnosis of cancer is made the treatment options are not options for this patient Reason For Visit: HYPERCALCEMIA OF MALIGNANCY, LEFT LOWER LOBE MASS, Physical Exam Vital Signs: Temp Pulse Resp BP Pulse Ox 99.2 F 104 H 22 H 148/61 H 94 10/13/18 15:49 10/13/18 15:49 10/13/18 15:49 10/13/18 15:49 10/13/18 15:49 Intake & Output 10/12/18 10/13/18 10/14/18 06:59 06:59 06:59 Intake Total 5430 3571 337 Output Total 2575 2150 1325 Balance 2855 1421 -988 Weight 80.1 kg 80.5 kg General appearance: PRESENT: no acute distress Eye exam: PRESENT: PERRLA Respiratory exam: PRESENT: clear to auscultation sarah Cardiovascular exam: PRESENT: +S1, +S2 GI/Abdominal exam: PRESENT: soft Neurological exam: PRESENT: alert, CN II-XII grossly intact Results Laboratory Results: 10/13/18 05:09 10/13/18 05:09 10/13/18 10/13/18 05:09 05:09 WBC 9.6 RBC 3.04 L Hgb 9.6 L Hct 29.0 L MCV 96 MCH 31.6 MCHC 33.1 RDW 13.0 Plt Count 324 Seg Neutrophils % Not Reportable Lymphocytes % Not Reportable Monocytes % Not Reportable Eosinophils % Not Reportable Basophils % Not Reportable Absolute Neutrophils Not Reportable Absolute Lymphocytes Not Reportable Absolute Monocytes Not Reportable Absolute Eosinophils Not Reportable Absolute Basophils Not Reportable Sodium 139.1 Potassium 3.6 Chloride 105 Carbon Dioxide 19 L Anion Gap 15 BUN 6 L Creatinine 0.75 Est GFR ( Amer) > 60 Est GFR (Non-Af Amer) > 60 Glucose 111 H Calcium 8.2 L Total Bilirubin 0.3 AST 27 ALT 15 Alkaline Phosphatase 72 Total Protein 5.9 L Albumin 2.8 L 10/10/18 10/10/18 10/10/18 21:50 21:50 21:50 Creatine Kinase 32 CK-MB (CK-2) 0.62 Troponin I < 0.012 NT-Pro-B Natriuret Pep 280 10/11/18 10/11/18 10/11/18 03:49 03:49 10:07 Creatine Kinase 48 46 CK-MB (CK-2) 0.68 Troponin I < 0.012 NT-Pro-B Natriuret Pep 10/11/18 10:07 Creatine Kinase CK-MB (CK-2) 0.75 Troponin I < 0.012 NT-Pro-B Natriuret Pep Impressions: Chest CT 10/10/18 00:00 IMPRESSION: 1. Left lower lobe mass, presumably related to malignancy given the history of lung cancer. Associated left hilar adenopathy. Head MRI 10/10/18 00:00 IMPRESSION: 1. Limited study. 2. Chronic changes. EVIDENCE OF ACUTE STROKE: NO. Chest X-Ray 10/10/18 11:00 IMPRESSION: CHF. Head CT 10/10/18 11:08 IMPRESSION: CHRONIC CHANGES OF ATROPHY AND MICROVASCULAR ISCHEMIA. NO ACUTE PROCESS. EVIDENCE OF ACUTE STROKE: NO. Assessment & Plan - Diagnosis (1) Hypercalcemia of malignancy Is this a current diagnosis for this admission?: Yes Plan: Discontinue IV furosemide (2) Cavitating mass in left lower lung lobe Is this a current diagnosis for this admission?: Yes (3) Metabolic encephalopathy Is this a current diagnosis for this admission?: Yes (4) Type 2 diabetes mellitus Qualifiers: Diabetes mellitus termite treater helper insulin use: with termite treater helper use Diabetes mellitus complication status: with neurologic complications Diabetes mellitus complication detail: with polyneuropathy Qualified Code(s): E11.42 - Type 2 diabetes mellitus with diabetic polyneuropathy; Z79.4 - [facility] (current) use of insulin; Z79.4 - [facility] (current) use of insulin; Z79.4 - [facility] ( current) use of insulin; Z79.4 - middle or intermediate school principal (current) use of insulin Is this a current diagnosis for this admission?: Yes (5) Dementia Qualifiers: Dementia type: Alzheimer's disease Alzheimer's disease onset: late-onset Dementia behavioral disturbance: without behavioral disturbance Qualified Code (s): G30.1 - Alzheimer's disease with late onset; F02.80 - Dementia in other diseases classified elsewhere without behavioral disturbance; F02.80 - Dementia in other diseases classified elsewhere without behavioral disturbance; F02.80 - Dementia in other diseases classified elsewhere without behavioral disturbance Is this a current diagnosis for this admission?: Yes
[2018-10-13] MEDS: INSULIN LISPRO 100 UNIT/ML 3 ML VIAL SUBCUT PRN (22:20)
[2018-10-14] MEDS: NORMAL SALINE 1000 ML 1,000 ML IV PRN ×2 (08:16→15:52)
[2018-10-14] MEDS: ENOXAPARIN SODIUM INJ 40 MG/0.4 ML DISP.SYRIN SUBCUT SCH (09:20)
[2018-10-14] MEDS: INSULIN LISPRO 100 UNIT/ML 3 ML VIAL SUBCUT PRN ×2 (14:02→18:18)
--- NOTE | 2018-10-14 19:25 | PDOC PROGRESS REPORT ---
Subjective Progress Note for:: 10/14/18 Subjective:: had a long discussion with patient's children, both the son and the daughter regarding DNR status and also to transition care to hospice care. She has a large left lower lobe mass, with high probability for recurrent lung cancer, she presented with hypercalcemic encephalopathy with a background of dementia. She is not particularly a good candidate for chemotherapy, radiation therapy, and surgery. I initially ordered a CT-guided needle biopsy of the mass for diagnostic purposes but the radiologist declined to pursue the biopsy they preferred that patient undergo bronchoscopy, consultation was obtained from pulmonary Dr. Villanueva, he felt that it is probably not necessary to pursue bronchoscopy especially since she is not particularly a good candidate for treatment ,this was explained to the family and the family shouwed understanding and they concur with the plan to refer her care to hospice Reason For Visit: HYPERCALCEMIA OF MALIGNANCY, LEFT LOWER LOBE MASS, Physical Exam Vital Signs: Temp Pulse Resp BP Pulse Ox 98.0 F 98 16 134/65 H 96 10/14/18 15:31 10/14/18 15:31 10/14/18 15:31 10/14/18 15:31 10/14/18 15:31 Intake & Output 10/13/18 10/14/18 10/15/18 06:59 06:59 06:59 Intake Total 3571 1337 2267 Output Total 2150 2525 850 Balance 1421 -1188 1417 Weight 80.5 kg 79.5 kg General appearance: PRESENT: no acute distress Eye exam: PRESENT: PERRLA Respiratory exam: PRESENT: clear to auscultation sarah Cardiovascular exam: PRESENT: +S1, +S2 GI/Abdominal exam: PRESENT: soft Neurological exam: PRESENT: alert Results Laboratory Results: 10/13/18 05:09 10/13/18 05:09 10/10/18 10/10/18 10/10/18 21:50 21:50 21:50 Creatine Kinase 32 CK-MB (CK-2) 0.62 Troponin I < 0.012 NT-Pro-B Natriuret Pep 280 10/11/18 10/11/18 10/11/18 03:49 03:49 10:07 Creatine Kinase 48 46 CK-MB (CK-2) 0.68 Troponin I < 0.012 NT-Pro-B Natriuret Pep 10/11/18 10:07 Creatine Kinase CK-MB (CK-2) 0.75 Troponin I < 0.012 NT-Pro-B Natriuret Pep Impressions: Chest CT 10/10/18 00:00 IMPRESSION: 1. Left lower lobe mass, presumably related to malignancy given the history of lung cancer. Associated left hilar adenopathy. Head MRI 10/10/18 00:00 IMPRESSION: 1. Limited study. 2. Chronic changes. EVIDENCE OF ACUTE STROKE: NO. Chest X-Ray 10/10/18 11:00 IMPRESSION: CHF. Head CT 10/10/18 11:08 IMPRESSION: CHRONIC CHANGES OF ATROPHY AND MICROVASCULAR ISCHEMIA. NO ACUTE PROCESS. EVIDENCE OF ACUTE STROKE: NO. Assessment & Plan - Diagnosis (1) Hypercalcemia of malignancy Is this a current diagnosis for this admission?: Yes (2) Cavitating mass in left lower lung lobe Is this a current diagnosis for this admission?: Yes Plan: Obtain hospice consult (3) Metabolic encephalopathy Is this a current diagnosis for this admission?: Yes (4) Type 2 diabetes mellitus Qualifiers: Diabetes mellitus superintendent container terminal insulin use: with alf use Diabetes mellitus complication status: with neurologic complications Diabetes mellitus complication detail: with polyneuropathy Qualified Code(s): E11.42 - Type 2 diabetes mellitus with diabetic polyneuropathy; Z79.4 - moth exterminator (current) use of insulin; Z79.4 - moth exterminator (current) use of insulin; Z79.4 - moth exterminator ( current) use of insulin; Z79.4 - moth exterminator (current) use of insulin Is this a current diagnosis for this admission?: Yes (5) Dementia Qualifiers: Dementia type: Alzheimer's disease Alzheimer's disease onset: late-onset Dementia behavioral disturbance: without behavioral disturbance Qualified Code (s): G30.1 - Alzheimer's disease with late onset; F02.80 - Dementia in other diseases classified elsewhere without behavioral disturbance; F02.80 - Dementia in other diseases classified elsewhere without behavioral disturbance; F02.80 - Dementia in other diseases classified elsewhere without behavioral disturbance Is this a current diagnosis for this admission?: Yes
[2018-10-15] MEDS: NORMAL SALINE 1000 ML 1,000 ML IV PRN ×2 (00:45→08:44)
[2018-10-15] MEDS: ENOXAPARIN SODIUM INJ 40 MG/0.4 ML DISP.SYRIN SUBCUT SCH (09:18)
[2018-10-15 16:06] VITALS: BP 144/74
--- NOTE | 2018-10-15 16:24 | PDOC TRANSFER SUMMARY ---
General - Admit/Disc Date/PCP Admission Date/Primary Care Provider: 10/10/18 13:29 ADOLFO CHAVARRIA MD Discharge Date: 10/15/18 - Discharge Diagnosis (1) Hypercalcemia of malignancy Is this a current diagnosis for this admission?: Yes (2) Cavitating mass in left lower lung lobe Is this a current diagnosis for this admission?: Yes (3) Metabolic encephalopathy Is this a current diagnosis for this admission?: Yes (4) Type 2 diabetes mellitus Is this a current diagnosis for this admission?: Yes (5) Dementia Is this a current diagnosis for this admission?: Yes - Additional Information Resuscitation Status: Do Not Resuscitate Home Medications: Acetaminophen [Tylenol 325 mg Tablet] 650 mg PO Q4HP PRN 10/10/18 Calcium Carbonate/Vitamin D3 [Oyster Shell 500-Vit D3 200 Tb] 1 tab PO DAILY 08/19 Difluprednate [Durezol] 1 drop OU QID 10/10/18 Empagliflozin [Jardiance] 25 mg PO DAILY 10/10/18 Glipizide [Glucotrol 10 mg Tablet] 10 mg PO BID 10/10/18 Insulin Glargine,Hum.rec.anlog [Lantus Insulin 100 Unit/1 ml 10 ml] 40 units SQ QHS 10/10/18 Insulin Lispro [Humalog Insulin (Lispro) 100 unit/mL] 0 units SQ ACHS 10/10/18 Ipratropium/Albuterol Sulfate [Duoneb 3 ml Ampul] 1 vial NEB Q6HP PRN 10/10/18 Metformin HCl [Glucophage] 1,000 mg PO BID 10/10/18 History of Present Illness Admission Date/PCP: 10/10/18 13:29 ADOLFO CHAVARRIA MD History of Present Illness: TRENTON BEARD is a 73 year old female,She is a resident of the group home at [facility], I received a call this morning from the group home staff that patient was not eating, was not talking, was not taking her medication, she is a diabetic, this is out of character for her I advised the group home staff to refer her to the emergency room for evaluation. In the emergency room she was evaluated, she was found to have hypercalcemia, chest x-ray was done that suggest CHF, she had a history of lung cancer, remote history of lobectomy , but patient continue to abuse tobacco. The constellation of hypercalcemia, encephalopathy, the intact PTH was low normal or this suggests to me that this probably malignancy, because of my suspicion for lung cancer I did not believe the chest x-ray finding that this was CHF, her presentation was not consistent with CHF, she presented with encephalopathy pulmonary saw on the floor she would not answer questions, I requested for CT of the chest with contrast, MRI of the brain with contrast, CT of the chest with contrast demonstrated a left lower lobe mass, 6 cm in size.MRI brain was a poor study because of motion artifact, the study was terminated. Hospital Course Hospital Course: Patient was admitted for the management of hypercalcemic encephalopathy, she was treated with pamidronate and IV fluid normal saline with normalization of the serum calcium. CT chest was done that demonstrated a large left lower lobe mass that measures over 6 cm in size, she has a history of lung cancer this is most likely a recurrent lung cancer partly due to patient's continued tobacco abuse. On admission CT-guided needle biopsy of the mass was requested but the radiologist declined to pursue this option they recommended a bronchoscopy to be done by pulmonary, she was seen by pulmonary Dr. Villanueva he felt that it is probably not a good idea to pursue bronchoscopy because she is not particularly good candidate for treatment she cannot have chemotherapy, surgery or radiation therapy and that the bronchoscopy with potential complication would not be in her best interest knowing fully well that she is not a candidate for treatment. After consultation with family including the son and the daughter it was felt that the best option at this stage of her disease is hospice care, family is in agreement, she be discharged back to group home with hospice. Physical Exam Vital Signs: Temp Pulse Resp BP Pulse Ox 98.0 F 90 19 144/74 H 91 L 10/15/18 15:35 10/15/18 15:35 10/15/18 15:35 10/15/18 15:35 10/15/18 15:35 Intake & Output 10/14/18 10/15/18 10/16/18 06:59 06:59 06:59 Intake Total 1337 3267 2128 Output Total 2525 2025 250 Balance -1188 1242 1878 Weight 79.5 kg 84.7 kg General appearance: PRESENT: no acute distress Eye exam: PRESENT: PERRLA Respiratory exam: PRESENT: clear to auscultation sarah Cardiovascular exam: PRESENT: +S1, +S2 Neurological exam: PRESENT: alert Results Laboratory Results: 10/13/18 05:09 10/13/18 05:09 10/10/18 10/10/18 10/10/18 21:50 21:50 21:50 Creatine Kinase 32 CK-MB (CK-2) 0.62 Troponin I < 0.012 NT-Pro-B Natriuret Pep 280 10/11/18 10/11/18 10/11/18 03:49 03:49 10:07 Creatine Kinase 48 46 CK-MB (CK-2) 0.68 Troponin I < 0.012 NT-Pro-B Natriuret Pep 10/11/18 10:07 Creatine Kinase CK-MB (CK-2) 0.75 Troponin I < 0.012 NT-Pro-B Natriuret Pep Impressions: Chest CT 10/10/18 00:00 IMPRESSION: 1. Left lower lobe mass, presumably related to malignancy given the history of lung cancer. Associated left hilar adenopathy. Head MRI 10/10/18 00:00 IMPRESSION: 1. Limited study. 2. Chronic changes. EVIDENCE OF ACUTE STROKE: NO. Chest X-Ray 10/10/18 11:00 IMPRESSION: CHF. Head CT 10/10/18 11:08 IMPRESSION: CHRONIC CHANGES OF ATROPHY AND MICROVASCULAR ISCHEMIA. NO ACUTE PROCESS. EVIDENCE OF ACUTE STROKE: NO. Qualifiers - * PATIENT BEING DISCHARGED WITH ANY OF THE FOLLOWING DIAGNOSIS: No
== END 2018-10-15 18:05 | DRG 640 ==
LOC: ER 10:18 → EH 13:29 → 3N 14:56 → 3S 10-11 04:50
PROVIDERS: ADMIT Internal Medicine; ATTEND Internal Medicine
DX: E83.52 Hypercalcemia (principal); G93.41 Metabolic encephalopathy; C34.32 Malignant neoplasm of lower lobe, left bronchus or lung; E11.42 Type 2 diabetes mellitus with diabetic polyneuropathy; E78.5 Hyperlipidemia, unspecified; I10 Essential (primary) hypertension; J44.9 Chronic obstructive pulmonary disease, unspecified; K21.9 Gastro-esophageal reflux disease without esophagitis; M19.90 Unspecified osteoarthritis, unspecified site; G30.1 Alzheimer's disease with late onset; F02.80 Dementia in other diseases classified elsewhere, unspecified severity, without behavioral disturbance, psychotic disturbance, mood disturbance, and anxiety; Z79.4 Long term (current) use of insulin; Z79.899 Other long term (current) drug therapy; Z85.118 Personal history of other malignant neoplasm of bronchus and lung; Z90.2 Acquired absence of lung [part of]; Z91.018 Allergy to other foods
CPT/HCPCS: 36415; 51702; 70450; 70551; 71045; 71260; 80048; 80053; 80061; 80076; 80307; 81001; 82140; 82150; 82550; 82553; 82962; 83036; 83690; 83735; 83880; 83970; 84100; 84443; 84484; 85025; 85610; 85730; 87040; 87086; 93005; 93010; 96360; 96361; 99291; J1650; J1815; J1940; J2430; J7030; J7050